=== PATIENT | male | born 1955 | race Caucasian/White ===

== ENCOUNTER → 2021-05-16 14:05 | Outpatient (CLI) | payer OTHER, SELFPAY ==
--- NOTE | ~2021-05-16 | XR_ITS ---
XR knee LT 2V DATE: 05/16/2021 14:20 INDICATION: Left knee pain. Struck knee against doorframe weeks ago. TECHNIQUE: Standing AP and lateral views COMPARISON: None FINDINGS: Mild suprapatellar knee joint effusion. Prominent enthesopathy at the superior pole of the patella. No fracture or dislocation. No periosteal reaction or bone destruction. No radiopaque intra-articular loose body or chondrocalcinosis. Joint spaces are well preserved. Femoral and popliteal artery calcifications. IMPRESSION: Mild knee joint effusion Reviewed, dictated and finalized at location B. IMPRESSION: Mild knee joint effusion
== END ==
PROVIDERS: PCP Emergency Medicine; Visit Provider Emergency Medicine
DX: M25.562 Pain in left knee (principal); M25.462 Effusion, left knee
CPT/HCPCS: 73560

== ENCOUNTER 2021-07-22 12:56 | Outpatient (CLI) | payer OTHER, SELFPAY ==
--- NOTE | ~2021-07-22 | XR_ITS ---
XR wrist LT 2V 07/22/2021 13:36 Indication: Left wrist pain Procedure: 2 views left wrist Comparison: No prior studies for comparison. Findings: There is radiocarpal joint space narrowing. There is scattered lucencies throughout the car pal bones, likely degenerative. No fracture or traumatic malalignment. There is mild ventral soft tis ortega swelling on the lateral view. No foreign bodies. There is anatomic alignment. There are degenerat doe changes at the radiocarpal, triscaphe and first carpometacarpal joints. 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 Reviewed, dictated and finalized at location A. 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
--- NOTE | ~2021-07-22 | MR_ITS ---
EXAMINATION: MR wrist LT wo con DATE: 07/22/2021 14:32 INDICATION: Left wrist pain TECHNIQUE: Magnetic resonance imaging (MRI) of the left wrist was performed without intravenous contr ast. Sequences performed include axial PD-weighted FSE and PD-weighted FS FSE, coronal PD-weighted FS FSE and T1-weighted SE, and sagittal PD-weighted FS FSE and PD-weighted FSE. COMPARISON: None FINDINGS: Intrinsic ligaments: There is partial tear of the dorsal component of the scapholunate ligament. The volar and central mem branous component bones. Remaining intact. The lunotriquetral ligament is normal. Triangular fibrocartilage complex (TFCC): There is a tear at the ulnar styloid attachment of the triangular fibrocartilage complex. The remaind er of the complex including the central fibrocartilaginous disc, the foveal attachment as well as the dorsal and volar radioulnar ligaments are normal. There also appears to be at least partial tear of the lunotriquetral ligament. The extensor carpi ulnaris tendon sheath is normal. Extensor wrist: Extensor tendons of the wrist are normal. No tenosynovitis. Flexor wrist: The flexor tendons of the wrist are normal. No abnormality in the carpal tunnel with normal median n erve. Guyon's canal: Guyon's canal including the ulnar nerve and artery are normal. Bones/other: Bone alignment is normal. Nonspecific marrow edema throughout the proximal carpal row as well as at t he both the radial and ulnar styloid processes. No fracture or osteonecrosis. Osteoarthritis with mil d nonuniform joint space narrowing and/or small marginal osteophytes at the radial carpal, midcarpal, triscaphe and first carpal metacarpal joints. There is suggestion of a possible small erosion at the volar tip of the radial styloid process. There is prominent synovitis and small associated joint eff usion throughout the wrist and midcarpal joints. IMPRESSION: 1. Partial tear of the dorsal component of the scapholunate ligament. 2. Tear at the ulnar styloid attachment of the triangular fibrocartilage complex and likely at least partial tear of the lunotriquetral ligament. 3. Nonspecific mild marrow edema primarily in the proximal carpal row and small regions at the radial ulnar styloid processes. This could be related to mild polyarticular osteoarthritis at the wrist and carpus, superimposed inflammatory arthritis with small effusions and associated synovitis at the wri st and midcarpal joints and suggestion of a possible small erosion at the tip of the radial styloid p rocess or bone contusions if there has been history of recent trauma. Reviewed, dictated and finalized at location A. IMPRESSION: 1. Partial tear of the dorsal component of the scapholunate ligament. 2. Tear at the ulnar styloid attachment of the triangular fibrocartilage comple x and likely at least partial tear of the lunotriquetral ligament. 3. Nonspecific mild marrow edema primarily in the proximal carpal row and small regions at the radial ulnar styloid processes. This could be related to mild p olyarticular osteoarthritis at the wrist and carpus, superimposed inflammatory arthritis with small effusions and associated synovitis at the wrist and midcar pal joints and suggestion of a possible small erosion at the tip of the radial styloid process or bone contusions if there has been history of recent trauma.
== END 2021-07-22 12:57 | disposition home or self-care (01) ==
PROVIDERS: PCP Emergency Medicine; Visit Provider Emergency Medicine
DX: S63.502A Unspecified sprain of left wrist, initial encounter (principal)
CPT/HCPCS: 73100; 73221

== ENCOUNTER 2021-07-26 13:39 | Outpatient (CLI) | payer OTHER, SELFPAY ==
--- NOTE | ~2021-07-26 | US_ITS ---
EXAMINATION:US venous doppler LE LT INDICATION:Left leg edema TECHNIQUE: Multiple grayscale, color flow and Doppler images of the left lower extremity deep venous systems were obtained and reviewed. COMPARISON:No prior studies for comparison. FINDINGS: The common femoral, superficial femoral and popliteal veins demonstrate normal respiratory variation, augmentation and compressibility. Color flow is also seen within the posterior tibial, pe roneal, greater saphenous and profunda veins. IMPRESSION: 1: No lower extremity deep venous thrombosis. Reviewed, dictated and finalized at location A.
== END 2021-07-26 13:40 | disposition home or self-care (01) ==
PROVIDERS: PCP Emergency Medicine; Visit Provider Emergency Medicine
DX: M79.662 Pain in left lower leg (principal); M79.89 Other specified soft tissue disorders
CPT/HCPCS: 93971

== ENCOUNTER 2021-08-02 00:21 | Day surgery (SDC) | payer OTHER, SELFPAY ==
[2021-07-07 14:13] VITALS: BMI 38.0
[2021-08-02 09:22] VITALS: BP 157/92; PULSE 88; RESP 20; TEMP 35.8; O2SAT 100
[2021-08-02] MEDS: LACTATED RINGERS 1,000 ML 150 ML IV CONT (09:36)
--- NOTE | 2021-08-02 09:38 | PM.HPGS ---
History of Present Illness History of Present Illness Consent: Risks, benefits, and alternatives have been discussed and questions answered. Patient agrees to proceed with procedure. Chief complaint: hx of colon polyps Narrative: Himanshu Goodrich is a 66 year old male here for colon cancer screening. He has a history of polyps Review of Systems Review of Systems: All systems reviewed & are unremarkable except as noted in HPI and below PMFSH Family History Family History Sibling Family history of rheumatoid arthritis Family history of cardiovascular disease Family history of diabetes mellitus in first degree relative Family history of malignant neoplasm of breast in first degree relative Father Cerebrovascular accident Mother Family history of pancreatic cancer Social History Social History Smoking packs per day: 1 Smoking cigarettes per day: 20.0 Years smoked: 40 Smoking pack-years: 40.00 Smoking status: Current every day smoker Tobacco type: cigarettes Smoking end date: 11/04/14 Alcohol intake: current Drinks per week: 20 Substance use: never Substance use type: does not use Living arrangements: alone Spiritual care concerns: No Meds Home Medications and Allergies Home Medications Medication Instructions Recorded Confirmed Type amlodipine 10 mg PO DAILY 07/07/21 08/02/21 History metoprolol succinate 50 mg PO DAILY 07/07/21 08/02/21 History rosuvastatin 10 mg PO DAILY 07/07/21 08/02/21 History Allergies Allergy/AdvReac Type Severity Reaction Status Date / Time No Known Allergies Allergy Verified 08/02/21 09:21 Vital Signs Vital Signs - 24 hr 08/02/21 09:22 Temperature 35.8 C L Pulse Rate 88 Respiratory Rate 20 Blood Pressure 157/92 H Pulse Oximetry 100 Exam Resp: Auscultation: clear to auscultation bilaterally Cardio: Rate: regular rate Rhythm: regular rhythm GI: GI Palp: Yes Soft to palpation and No Tenderness to palpation present (GI) Assessment and Plan Assessment and plan (1) Colon cancer screening: Code(s): Z12.11 - Encounter for screening for malignant neoplasm of colon Status: Acute Assessment and Plan: Colonoscopy with possible biopsy or polypectomy or cautery or injection of substances.
--- NOTE | 2021-08-02 10:05 | P.PNAN_ITS ---
Anes - Initial Pre Proc Eval Procedure: Operation Date: 08/02/21 10:00 Proposed Procedures p Screening Colonoscopy - lAexis Gaitan MD Date/Time: 08/02/21 10:05 Surgeon: Alexis Gaitan MD Pre Op Diagnosis: hx of colon polyps Patient Data Age: 66 Gender: M Height: 1.7 m Weight: 102.6 kg Last Vital Signs Temp 96.5 F L 08/02/21 09:22 Pulse 88 08/02/21 09:22 Resp 20 08/02/21 09:22 BP 157/92 H 08/02/21 09:22 Pulse Ox 100 08/02/21 09:22 Allergies Allergy/AdvReac Type Severity Reaction Status Date / Time No Known Allergies Allergy Verified 08/02/21 09:21 Home Medications Medication Instructions Recorded Confirmed Type amlodipine 10 mg PO DAILY 07/07/21 08/02/21 History metoprolol succinate 50 mg PO DAILY 07/07/21 08/02/21 History rosuvastatin 10 mg PO DAILY 07/07/21 08/02/21 History Patient hx anesthesia problems: none Family hx anesthesia problems: none Results Review: All pre-operative results and documents have been reviewed as part of the pre-operative evaluation. [facility] Past Medical History Medical History (Updated 08/02/21 @ 10:04 by Walter Munoz MD) Hyperlipidemia Hypertension SUJEY (obstructive sleep apnea) Family History Family History Sibling Family history of rheumatoid arthritis Family history of cardiovascular disease Family history of diabetes mellitus in first degree relative Family history of malignant neoplasm of breast in first degree relative Father Cerebrovascular accident Mother Family history of pancreatic cancer Social History Social History Smoking packs per day: 1 Smoking cigarettes per day: 20.0 Years smoked: 40 Smoking pack-years: 40.00 Smoking status: Current every day smoker Tobacco type: cigarettes Smoking end date: 11/04/14 Alcohol intake: current Drinks per week: 20 Substance use: never Substance use type: does not use Living arrangements: alone Spiritual care concerns: No Anes - Eval Final PreProcedure Day of Procedure 08/02/21 10:05 Patient weight: obese Heart: regular rate and rhythm Lungs: clear to auscultation Airway: Mallampati scale class II Neurological: alert and oriented Last oral intake: >/= 8 hours Emergent: no Anesthetic plan: proceed Anesthesia type and monitoring: general GIVS and standard monitoring Results Review: All pre-operative results and documents have been reviewed as part of the pre-operative evaluation. Informed Consent: The patient's anesthetic plan and its attendant risks and benefits were discussed with the patient/family/POA. Questions were solicited and answers provided to the satisfaction of the patient/family/POA.
[2021-08-02 10:26] VITALS: BP 134/74; PULSE 79; RESP 28; O2SAT 97
[2021-08-02 10:36] VITALS: BP 133/78; PULSE 79; RESP 21; O2SAT 98
[2021-08-02 10:46] VITALS: BP 137/87; PULSE 81; RESP 29; O2SAT 100
== END 2021-08-02 10:50 | disposition home or self-care (01) ==
PROVIDERS: PCP Emergency Medicine; Visit Provider Internal Medicine Gastroenterology
PROC: 0DJD8ZZ Inspection of Lower Intestinal Tract, Via Natural or Artificial Opening Endoscopic (ICD-10-PCS; CPT 45378; principal; 2021-08-02 10:00)
DX: Z12.11 Encounter for screening for malignant neoplasm of colon (principal); K63.5 Polyp of colon; K64.8 Other hemorrhoids; I10 Essential (primary) hypertension; G47.33 Obstructive sleep apnea (adult) (pediatric); E66.9 Obesity, unspecified; Z68.35 Body mass index [BMI] 35.0-35.9, adult; Z87.891 Personal history of nicotine dependence
CPT/HCPCS: 45385; 45380; 88305; J2704; J7120

== ENCOUNTER → 2022-01-18 09:04 | Outpatient (CLI) | payer MEDICARE, SELFPAY ==
--- NOTE | ~2022-01-18 | CT_ITS ---
EXAMINATION: CT lung screening DATE: 01/18/2022 09:24 INDICATION: Personal history of nicotine dependence TECHNIQUE: Computed tomography (CT) of the chest was performed without intravenous contrast. The dose -length product was 320.69 mGy-cm. Automated exposure control and iterative reconstruction technique were employed. COMPARISON: None FINDINGS: There is atherosclerosis of the aorta and coronary arteries. Heart size is normal. No endob ronchial lesions. No pneumothorax. No focal airspace consolidation. There are a few small 1-2 mm nodu les in both lungs, most likely benign. No endobronchial lesions. No thoracic lymphadenopathy. The upp er abdomen is unremarkable. Mild thoracic spondylosis. IMPRESSION: 1. Lung-RADS category 2: Benign appearance or behavior. Continue annual screening with noncontrast lo w-dose chest CT in 12 months. Reviewed, dictated and finalized at location B. IMPRESSION: 1. Lung-RADS category 2: Benign appearance or behavior. Continue annual screeni ng with noncontrast low-dose chest CT in 12 months.
== END ==
PROVIDERS: PCP Emergency Medicine; Visit Provider Emergency Medicine
DX: Z12.2 Encounter for screening for malignant neoplasm of respiratory organs (principal); Z87.891 Personal history of nicotine dependence
CPT/HCPCS: 71271

== ENCOUNTER → 2023-08-16 10:18 | Outpatient (CLI) | payer MEDICARE, SELFPAY ==
--- NOTE | ~2023-08-16 | CT_ITS ---
CT Scan of the Chest without Contrast: Clinical Indication: Lung cancer screening, smoking history Technique: Contiguous sections were acquired throughout the chest without intravenous contrast. Dose reduction technique was used on this scan by utilizing automated exposure control and iterative recon struction technique. The dose-length product (DLP) was 249.14 mGy-cm. COMPARISON: 01/18/2022 Findings: There is no evidence of any significant mediastinal, hilar or axillary lymphadenopathy. Atherosclerot ic calcifications of the aorta and coronary arteries are present. There is no evidence of pleural or pericardial effusion. There are several peripheral very small subcentimeter nodules in the right upper lobe, most likely be nign. Images through the upper abdomen reveal no abnormalities. There is DISH of the thoracic spine. Impression: Lung RADS 2: Benign appearance. 12 month follow-up screening CT advised. Reviewed, dictated and finalized at [facility]. Impression: Lung RADS 2: Benign appearance. 12 month follow-up screening CT advised.
== END ==
PROVIDERS: PCP Emergency Medicine; Visit Provider Emergency Medicine
DX: Z12.2 Encounter for screening for malignant neoplasm of respiratory organs (principal); Z87.891 Personal history of nicotine dependence
CPT/HCPCS: 71271

== ENCOUNTER 2024-10-09 08:45 | Outpatient (CLI) | payer MEDICARE, SELFPAY ==
--- NOTE | ~2024-10-09 | CT_ITS ---
CT Scan of the Chest without Contrast: Clinical Indication: Lung cancer screening, nicotine dependence Technique: Contiguous sections were acquired throughout the chest without intravenous contrast. Dose reduction technique was used on this scan by utilizing automated exposure control and iterative recon struction technique. The dose-length product (DLP) was 250.73 mGy-cm. COMPARISON: 08/16/2023 Findings: There is no evidence of any significant mediastinal, hilar or axillary lymphadenopathy. Coronary jazmin ry calcifications are present. There is no evidence of pleural or pericardial effusion. Several tiny peripheral right upper lobe pulmonary nodules are unchanged. Images through the upper abdomen reveal no abnormalities. There is DISH of the thoracic spine. Impression: Lung RADS 2: Benign appearance. 12 month follow-up screening CT advised. Reviewed, dictated and finalized at location . RTISING DISPLAY ROTATOR Impression: Lung RADS 2: Benign appearance. 12 month follow-up screening CT advised.
== END 2024-10-09 08:46 | disposition home or self-care (01) ==
LOC: MICIMG 08:46
PROVIDERS: PCP Emergency Medicine; Visit Provider Emergency Medicine
DX: Z12.2 Encounter for screening for malignant neoplasm of respiratory organs (principal); Z87.891 Personal history of nicotine dependence
CPT/HCPCS: 71271

== ENCOUNTER 2025-01-13 06:49 | Inpatient (IN) | payer MEDICARE, SELFPAY ==
[2025-01-13] VITALS (27 sets, daily range): BP systolic 122–185; BP diastolic 54–93; PULSE 10–108; RESP 18–37; TEMP 36.2–36.9; O2SAT 91–100; BMI 38.3
--- NOTE | 2025-01-13 | ECHO_ITS ---
Patient Info Name: Himanshu Goodrich Age: 70 years : 1955 Gender: Male Ht: 67 in Wt: 244 lbs BSA: 2.34 m2 HR: 102 bpm BP: 139 / 54 mmHg Heart Rhythm: Atrial Fibrillation Technical Quality: Fair Exam Date: 01/13/2025 3:32 PM Exam Location: Echo Lab Patient Status: Inpatient Admit Date: 01/13/2025 Staff Ordering Physician: Sai Lee MD Manager Personal: Alla Parham RDCS Attending Provider: Sai Lee MD Exam Type: CA echo dop color flow w con Study Info Indications - Edema - SOB Complete two-dimentional, color flow and Doppler transthoracic echocardiogram is performed with agitated saline and with contrast to opacify the left ventricle and to improve the delineation of the left ventricle endocardial borders. Contrast/Agitated Saline Contrast/Ag. Saline: Definity Amount: 8.00 ml Existing IV Access: Yes IV Access Condition: patent with no signs of infiltration New IV Access: Antecubital Space Summary 1. There is normal biventricular size and systolic function. 2. There is no significant valvular disease. 3. Technically difficult study with limited visualization. Left Ventricle The left ventricle is normal in size with hyperdynamic systolic function. The left ventricular ejection fraction is greater than 70%. Right Ventricle The right ventricle is normal in size and systolic function. Left Atria The left atrium is normal size. Right Atria The right atrium is normal size. Atrial Septum The atrial septum is not well visualized. Aortic Valve The aortic valve is not well visualized however the Doppler gradients across the valve suggests normal function valve. Pulmonic Valve The pulmonic valve is not visualized. Mitral Valve The mitral valve is normal. There is no significant mitral regurgitation. Tricuspid Valve The tricuspid valve is not well visualized. Pericardium/Pleural Prominent epicardial fat pad. Inferior Vena Cava Inferior vena cava is not well visualized. Aorta The aortic root is not well visualized. Left Ventricular Outflow Tract Name Value Normal LVOT 2D LVOT Diameter 2.03 cm LVOT Doppler LVOT Peak Gradient 9 mmHg LVOT Mean Gradient 4 mmHg LVOT VTI 27.74 cm LVOT VTI/AV VTI Ratio 0.77 LVOT Stroke Volume 89.33 ml LVOT CO 9.03 l/min LVOT CI 3.86 L/min/m2 Pulmonic Valve Name Value Normal RVOT Doppler RVOT Peak Gradient 2 mmHg PV Doppler PV Peak Gradient 5 mmHg Mitral Valve Name Value Normal MV Doppler MV Decel [place] 1,149.01 cm/s2 MV PHT 0 s MV Area (PHT) 5.51 cm2 4.00-5.00 MV Diastolic Function MV E Peak Velocity 158.19 cm/s MV A Peak Velocity 5.14 cm/s MV E/A 30.80 MV Decel Time 0 s MV Annular TDI MV E/e' (Septal) 9.99 <=8.00 MV E/e' (Lateral) 21.61 <=8.00 MV E/e' (Average) 15.80 Aortic Valve Name Value Normal AV Doppler AV Peak Velocity 182.65 cm/s AV Peak Gradient 13 mmHg AV Mean Gradient 7 mmHg AV VTI 36.20 cm AV Area (Cont Eq VTI) 2.47 cm2 >=3.00 AV Area (Cont Eq Francis) 2.63 cm2 AV Regurgitation 2D LVOT Area 3.22 cm2 Ventricles Name Value Normal LV Dimensions 2D/MM IVS Diastolic Thickness (2D) 1.16 cm 0.60-1.00 LVID Diastole (2D) 5.38 cm 4.20-5.80 LVIW Diastolic Thickness (2D) 1.06 cm 0.60-1.00 LVID Systole (2D) 3.55 cm 2.50-4.00 LVOT Diameter 2.03 cm LV Mass (2D Cubed) 236.20 g 88.00-224.00 LV Mass Index (2D Cubed) 0.01 g/cm2 0.00-0.01 Relative Wall Thickness (2D) 0.39 LV Fractional Shortening/Ejection Fraction 2D/MM LV Fractional Shortening (2D) 34 % 25-43 LV EF (2D Teicholz) 62 % 52-72 LV Diastolic Volume (4C MOD) 146.01 ml LV EF (4C MOD) 67 % LV Diastolic Volume (2C MOD) 102.66 ml LV EF (2C MOD) 69 % LV Diastolic Volume (BP MOD) 117.42 ml 62.00-150.00 LV Diastolic Volume Index (BP MOD) 0.05 l/m2 0.03-0.07 LV Systolic Volume (BP MOD) 39.80 ml 21.00-61.00 LV Systolic Volume Index (BP MOD) 0.02 l/m2 0.01-0.03 LV EF (BP MOD) 66 % 52-72 LV Diastolic Length (4C) 8.03 cm LV Systolic Length (4C) 7.28 cm LV Stroke Volume (4C MOD) 98.00 ml Atria Name Value Normal LA Dimensions LA Volume (4C A-L) 70.97 ml LA Volume (BP A-L) 56.01 ml RA Dimensions RA Area (4C) 23.20 cm2 <=18.00 Report Signatures
--- NOTE | ~2025-01-13 | US_ITS ---
EXAMINATION: US venous doppler [facility] DATE: 01/13/2025 08:31 INDICATION: Lower limb swelling and edema. TECHNIQUE: Grayscale ultrasound images without and with compression and Doppler ultrasound images of the bilateral lower extremity veins were obtained. COMPARISON: Ultrasound 07/26/2021 FINDINGS: The visualized portions of right common femoral vein, profunda (deep) femoral vein, femoral vein, pop liteal vein, peroneal veins, posterior tibial veins, and greater saphenous vein outflow are patent. The visualized portions of left common femoral vein, profunda femoral vein, femoral vein, popliteal v ein, peroneal veins, posterior tibial veins, and greater saphenous vein outflow are patent. IMPRESSION: 1. No deep venous thrombosis. Reviewed, dictated and finalized at location B.
--- NOTE | ~2025-01-13 | CT_ITS ---
CLINICAL INDICATION: Hypoxia COMPARISON: 10/09/2024 and dating back to 01/18/2022. TECHNIQUE: Multiple contiguous axial images of the chest was performed without the administration of intravenous contrast. This CT examination was performed utilizing dose reduction techniques. DLP: 251 mGy-cm FINDINGS/OBSERVATIONS: LUNG: Cylindrical peribronchial thickening is redemonstrated. 4 mm nodule within the left upper lobe periphery, unchanged dating back to 2021. The remainder of the lungs are otherwise clear HEART: The heart is of normal size, without pericardial effusion. MEDIASTINUM: No pathologically enlarged or morphologically suspicious lymph nodes are identified within the medias tinum, bilateral axilla, within the soft tissues of the anterior chest wall. SOFT TISSUES OF THE CHEST: Unremarkable. BONES OF THE CHEST: No acute fracture. There are bridging endplate osteophytes at multiple levels in the spine, consistent with diffuse idio pathic skeletal hyperostosis (DISH). No lytic or blastic lesions are identified. UPPER ABDOMEN: Fatty infiltration of the liver. IMPRESSION: Cylindrical bronchiectasis. No focal infiltrate. Reviewed, dictated and finalized at location A.
--- NOTE | ~2025-01-13 | XR_ITS ---
EXAMINATION: XR chest 1V portable DATE: 01/13/2025 08:34 INDICATION: Shortness of breath. TECHNIQUE: A single frontal view of the chest was obtained. COMPARISON: Chest CT 10/09/2024 FINDINGS: There is no pneumonia, pleural effusion, or pneumothorax. The heart size is normal. IMPRESSION: 1. No acute cardiopulmonary disease. Reviewed, dictated and finalized at location B.
--- NOTE | 2025-01-13 06:59 | ECG_ITS ---
Test Date: 2025-01-13 06:54:41 Measurements Intervals [place] Rate: 98 P: 61 NE: 200 QRS: 43 QRSD: 106 T: 60 QT: 327 QTc: 418 Interpretive Statements SINUS RHYTHM POSSIBLE LEFT ATRIAL ENLARGEMENT [-0.1mV P WAVE IN V1/V2] No previous ECG available for comparison Electronically Signed On 01-13-2025 13:40:33 CDT by Levi Reed M.D.
[2025-01-13 07:09] LABS: Basophils Absolute Auto 0.1 K/mm3 (0.0-0.1); Basophils Percent Auto 0.7 % (0.2-1.2); Eosinophils Percent Auto 7.3 % (0-4.4); Hematocrit 39.1 % (42.0-52.0); Immature Granulocyte Absolute 0.05 K/mm3 (0.00-0.031); Immature Granulocyte Percent A 0.4 % (0-0.5); Lymphocytes Absolute Auto 1.99 K/mm3 (0.9-3.2); Lymphocytes Percent Auto 14.1 % (18.3-44.2); Mean Corpuscular HGB Conc 33.2 g/dl (32-36); Mean Corpuscular Hemoglobin 32.3 pg (26-34); Mean Platelet Volume 8.5 fl (7.4-10.4); Monocytes Absolute Auto 1.4 K/mm3 (0.1-0.6); Monocytes Percent Auto 9.8 % (2.6-8.5); Neutrophils Absolute Auto 9.6 K/mm3 (1.3-6.7); Neutrophils Percent Auto 67.7 % (45.5-73.1); Platelet Count Result 250 k/mm3 (150-375); Red Blood Count 4.03 M/mm3 (4.6-6.20); Red Cell Distribution Width 13.5 % (11.5-14.5); White Blood Count 14.1 K/mm3 (4.5-10.0)
[2025-01-13 07:27] LABS: Alanine Aminotransferase 45 U/L (6-50); Albumin Level 4.3 g/dL (3.5-5.1); Alkaline Phosphatase 112 U/L (38-126); Anion Gap 11 mmol/L (4-12); Aspartate Amino Transferase 39 U/L (17-59); Bilirubin,Total 0.6 mg/dL (0.2-1.3); Blood Urea Nitrogen 12 mg/dL (9-20); Calcium 8.9 mg/dL (8.4-10.2); Carbon Dioxide 22 mmol/L (22-30); Chloride 102 mmol/L (98-107); Estimated CRCL calculation 81 ml/min; Estimated Glomerular Filt Rate > 60; Glucose 121 mg/dL (65-110); Potassium 3.9 mmol/L (3.4-5.0); Sodium 135 mmol/L (137-145)
[2025-01-13 07:43] LABS: Influenza A QL RT-PCR Negative (Negative); Influenza B QL RT-PCR Negative (Negative); RSV RNA, RT-PCR Negative (Negative); SARS-CoV-2 RNA PCR Negative (Negative)
--- OUTSIDE RECORDS SUMMARY | 2025-01-13 07:48 | XMS_ITS | Referral Summary ---
Author Organization [facility] HealthCare Care Team Providers Care Putty Glazer Name Role Phone Vern Yusuf MD Primary Care Provider Allergies No known active allergies Medications metoprolol XL (Toprol XL) 50 mg extended release tablet Take 1 tablet by mouth daily 05/15/2021 Active amLODIPine (Norvasc) 10 mg tablet Take 1 tablet by mouth daily 05/15/2021 Active rosuvastatin (Crestor) 10 mg tablet Take 1 tablet by mouth daily 10/12/2020 Active cholecalciferol (VITAMIN D-3) 2000 unit capsule Take 1 capsule (2,000 Units total) by mouth daily 30 capsule 09/11/2021 Active metoprolol XL (TOPROL-XL) 100 mg 24 hr tablet 09/14/2021 Act doe Active Problems Problem Noted Date Diagnosed Date Carpal tunnel syndrome of left wrist 08/18/2021 Elevated ferritin 03/15/2017 Chronic liver disease 11/18/2013 Hyperlipidemia 11/18/2013 Leukocytosis 11/18/2013 Abdominal hernia 10/20/2013 Essential hypertension 10/20/2013 Social History Tobacco Use Types Packs/Day Years Used Date Smoking Tobacco: Every Day Cigarettes 1 50 Smokeless Tobacco: Never AUDIT-C Answer Date Recorded Q1: How often do you have a drink containing alcohol? 4 or more times a week 09/11/2021 Q2: How many drinks containi ng alcohol do you have on a typical day when you are drinking? 1 or 2 Frequency of Binge Drinking Not on file 06/2021 Sex and Gender Information Value Date Recorded Sex Assigned at Not on file Legal Sex Male 6:25 AM CDT Gender Identity Not on file Sexual Orientation Not on file Last Filed Vital Signs Vital Sign Reading Time Taken Comments Blood Pressure 171/78 09/26/2021 11:56 AM SALES TEAM [employer]BER Pulse 64 09/26/2021 11:56 AM SALES TEAM MEMBER Temperature 36.8 C (98.2 F) 09/11/2021 1:07 PM SALES TEAM MEMBER Respiratory Rate 18 09/11/2021 1:07 PM SALES TEAM [employer]BER Oxygen Saturation 98% 09/11/2021 1:07 PM SALES TEAM MEMBER Inhaled Oxygen Concentration - - Weight 111.1 kg (245 lb) 09/26/2021 11:56 AM SALES TEAM MEMBER Height 170.2 cm (5' 7 ) 09/26/2021 11:56 AM SALES TEAM MEMBER Body Mass Index 38.37 09/26/2021 11:56 AM SALES TEAM MEMBER Plan of Treatment Not on file Insurance [employer]ARE [employer] Care Teams Putty Glazer Relationship Specialty Start Date End Date Vern Yusuf MD [facility] [place] [address] PCP - General Family Medicine 05/24/21
--- OUTSIDE RECORDS SUMMARY | 2025-01-13 07:48 | XMS_ITS | Clinical Summary ---
Author Organization [facility] Address [address] [facility] [address] [place] [address] Phone Care Team Providers Care Collar Turner Operator Name Role Phone Vern Yusuf Primary Care Provider [phone] Allergies No known active allergies Medications fenofibrate 160 MG Tablet daily. 0 12/24/2016 Active valsartan-hydroCH LOROthiazide (DIOVAN-HCT) 320-25 MG Tablet daily. 10/16/2017 Ac tive Active Problems Problem Noted Date Diagnosed Date Elevated ferritin 03/15/2017 Family History Medical History Relation Name Comments Diabetes Brother Other-comment Father connie giopothy-brain bleed Stroke Father Cancer Mother pancreatic Cancer Sister breast Hypertension Sister Relation Name Status Comments Brother Father Mother Sister Social History Tobacco Use Types Packs/Day Years Used Date Smoking Tobacco: Former Cigarettes 2 40 0 03/15/1975 - 03/15/2015 Smokeless Tobacco: Never Alcohol Use Standard Drinks/Week Comments Yes 0 (1 standard drink = 0.6 oz pur e alcohol) wine with dinner Sex and Gender Information Value Date Recorded Sex Assigned at Not on file Legal Sex Male 8:40 PM CDT Gender Identity Not on file Sexual Orientation Not on file Last Filed Vital Signs Vital Sign Reading Time Taken Comments Blood Pressure 118/70 06/06/2018 9:42 AM CDT Pulse 86 06/06/2018 9:42 AM CDT Temperature 36.4 C (97.5 F) 06/06/2018 9:42 AM CDT Respiratory Rate 18 06/06/2018 9:42 AM CDT Oxygen Saturation 98% 06/06/2018 9:42 AM CDT Inhaled Oxygen Concentration - - Weight 90.7 kg (200 lb) 06/06/2018 9:42 AM CDT Height 172.7 cm (5' 8 ) 06/06/2018 9:42 AM CDT Body Mass Index 30.41 06/06/2018 9:42 AM CDT Plan of Treatment Health Maintenance Due Date Last Done Comments Hepatitis C Virus (HCV) Screening 1955 TdaP Immunization 1955 Colonoscopy 01/10/2000 Colorectal Cancer Screening 01/10/2000 Cologuard 2005 Immunochemical Fecal Occult Blood 2005 Pneumococcal Immunization (5 0+ years) (1 of 1 - PCV) 2005 Zoster Immunization (1 of 2) 2005 Influenza Immunization (#1) 07/05/202412/2017, 11/22/2016 SARS-COV-2 Immunization ( - season) 2024 01/23/2021, 12/21/2020 Respiratory Syncytial Virus (RSV) Immunization (Adult) (1 - 1-dose 75+ series) 2030 PSA Discussion Completed 09/28/2017 Hepatitis B Immunization Aged Out No longer eligible based on patient's age to complete this topic Meningococcal Immunization (ACWY) Aged Out No longer eligible b ased on patient's age to complete this topic Rotavirus Immunization Aged Out No lo nger eligible based on patient's age to complete this topic Procedures Procedure Name Priority Date/Time Associated Diagnosis Comments PSA FREE & TOTAL Routine 09/28/2017 from Last 3 Months or Most Recently Relevant to Health Maintenance Results * PSA FREE & TOTAL (09/28/2017) Blood specimen (specimen) us Historical Provider CHEMISTRY ORDERABLES Carol Ann l Result from Last 3 Months or Most Recently Relevant to Health Maintenance Insurance [id number] Care Teams Collar Turner Operator Relationship Specialty Start Date End Date Vern Yusuf [address] [place] [address] PCP - General Family Medicine 03/04/17
--- OUTSIDE RECORDS SUMMARY | 2025-01-13 07:48 | XMS_ITS | Clinical Summary ---
Author Organization [facility] HealthCare Care Team Providers Care Religious Healer Name Role Phone Vern Yusuf MD Primary [...] 11/18/2013 Abdominal hernia 10/20/2013 Essential hypertension 10/20/2013 Medical History Medical History Date Comments Hypertension Hypercholesteremia Social History Tobacco Use Types Packs/Day Years [...] on file Sexual Orientation Not on file Obstetrics History Last Filed Vital Signs Vital Sign Reading Time Taken Comments Blood Pressure 171/78 09/26/2021 11:56 AM [employer] Pulse 64 09/26/2021 11:56 AM [employer] Temperature 36.8 C (98.2 F) 09/11/2021 1:07 PM [employer] Respiratory Rate 18 09/11/2021 1:07 PM [employer] Oxygen Saturation 98% 09/11/2021 1:07 PM [employer] Inhaled Oxygen Concentration - - Weight 111.1 kg (245 lb) 09/26/2021 11:56 AM [employer] Height 170.2 cm (5' 7 ) 09/26/2021 11:56 AM [employer] Body Mass Index 38.37 09/26/2021 11:56 AM [employer] Plan of Treatment Not on file Insurance [facility]ICARE [facility] Address: [facility] [address] [address] [place] [address] [employer] Care Teams Religious Healer Relationship Specialty Start Date End Date Vern Yusuf MD [address] [place] [address] PCP - General Family Medicine 05/24/21
--- NOTE | 2025-01-13 07:49 | ED_ITS ---
HPI - General Adult General Chief complaint: Shortness of Breath/Dyspnea Stated complaint: Resp Distress Time Seen by Provider: 01/13/25 07:01 History of Present Illness HPI narrative: This 70-year-old male history of hypertension obstructive sleep apnea presenting with difficulty breathing. Patient states for last 3 days he has developed a productive cough and shortness of breath. He has orthopnea. He has had intermittent swelling of his lower extremities over last year except who has become constant over the last several days. He denies fevers chills chest pain abdominal pain or urinary symptoms. Patient called EMS was found to be hypoxic and was placed CPAP. 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 Related Data Home Medications ?Medication ?Instructions ?Recorded ?Confirmed ?Last Taken ?Type amlodipine 10 mg tablet 10 mg PO DAILY 07/07/21 08/02/21 08/01/21 21:30 History metoprolol succinate 50 mg 50 mg PO DAILY 07/07/21 08/02/21 08/01/21 21:30 History tablet,extended release 24 hr rosuvastatin 10 mg tablet 10 mg PO DAILY 07/07/21 08/02/21 08/01/21 21:30 History Allergies Allergy/AdvReac Type Severity Reaction Status Date / Time No Known Allergies Allergy Verified 08/02/21 09:21 [facility] Past Medical History Medical History SUJEY (obstructive sleep apnea) Hypertension Hyperlipidemia Family History Family History Sibling Family history of rheumatoid arthritis Family history of cardiovascular disease Family history of diabetes mellitus in first degree relative Family history of malignant neoplasm of breast in first degree relative Father Cerebrovascular accident Mother Family history of pancreatic cancer Social History Social History Smoking packs per day: 1 Smoking cigarettes per day: 20.0 Years smoked: 40 Smoking pack-years: 40.00 Smoking status: Current every day smoker Tobacco type: cigarettes Smoking end date: 11/04/14 Alcohol intake: current Drinks per week: 20 Substance use: never Substance use type: does not use Living arrangements: alone Spiritual care concerns: No Exam 2 Narrative: APPEARANCE: Respiratory distress Head: atraumatic. EYES: EOMI, NOSE: Atraumatic NECK: Trachea midline RESPIRATORY: Tachypneic, hypoxic on room air, scattered wheezing and rhonchi CARDIOVASCULAR: Tachycardic, edema lower extremities ABDOMINAL: Non-distended, soft nontender MUSCULOSKELETAl: No obvious deformities NEURO: Alert. Moving 4/4 extremities SKIN:: Warm, dry. Normal color PSYCHIATRIC: Normal affect Course Vital Signs Vital signs: Vital Signs Temperature 97.9 F 01/13/25 06:48 Pulse Rate 103 H 01/13/25 06:48 Respiratory Rate 37 H 01/13/25 06:48 Blood Pressure 185/93 H 01/13/25 06:48 Pulse Oximetry 100 01/13/25 06:48 Oxygen Delivery CPAP 01/13/25 06:48 Temperature 97.9 F 01/13/25 06:48 Pulse Rate 101 H 01/13/25 11:20 Respiratory Rate 23 H 01/13/25 11:20 Blood Pressure 156/77 H 01/13/25 11:20 Pulse Oximetry 97 01/13/25 11:20 Oxygen Delivery Nasal Cannula 01/13/25 10:50 Oxygen Flow Rate 4 01/13/25 10:50 Medical Decision Making [facility] Narrative Medical decision making narrative: -Course: 70-year-old male presenting 3 days worsening shortness of breath that got acutely worse. Review of the EMS paperwork shows that he was in severe respiratory distress with severely elevated blood pressures that improved w/ bipap. By time I evaluated in the ED his condition had improved immensely. Physical exam showed significant edema lower extremities. Patient given 40 mg of Lasix. His workup including laboratory studies, viral swabs, troponin, D- dimer and BMP were unremarkable. Venous duplex of the lower extremities negative. CT without contrast not show any infiltrates.. Given the acuity of his symptoms I feel this is most likely flash pulmonary edema. We were able to wean him off of the BiPAP in the emergency department and is down to 1 L nasal cannula. He will be admitted the hospital further management. -DDX includes but is not limited to: Flash pulmonary edema, pulmonary embolism, ACS, pneumonia, viral syndrome -Co-morbidities complicating care: Hypertension, obstructive sleep apnea Independent EKG interpretation: Rhythm [sinus], Rate [98], [place] -[normal], MD -[normal], QRS [narrow], QTC [normal], T waves -[negative for concerning inversions], ST Segments - [Negative for concerning elevations] Final interpretations: [Normal Sinus Rhythm] Vital Signs Vital Signs: Vital Signs Temperature 97.9 F 01/13/25 06:48 Pulse Rate 103 H 01/13/25 06:48 Respiratory Rate 37 H 01/13/25 06:48 Blood Pressure 185/93 H 01/13/25 06:48 Pulse Oximetry 100 01/13/25 06:48 Oxygen Delivery CPAP 01/13/25 06:48 Temperature 97.9 F 01/13/25 06:48 Pulse Rate 101 H 01/13/25 11:20 Respiratory Rate 23 H 01/13/25 11:20 Blood Pressure 156/77 H 01/13/25 11:20 Pulse Oximetry 97 01/13/25 11:20 Oxygen Delivery Nasal Cannula 01/13/25 10:50 Oxygen Flow Rate 4 01/13/25 10:50 Lab Data 01/13/25 07:02 01/13/25 07:01 Labs: Lab Results 01/13/25 01/13/25 01/13/25 Range/Units 07:01 07:02 07:55 WBC 14.1 H (4.5-10.0) K/mm3 RBC 4.03 L (4.6-6.20) M/mm3 Hgb 13.0 L (14.0-18.0) g/dL Hct 39.1 L (42.0-52.0) % MCV 97.0 (80-100) fl MCH 32.3 (26-34) pg MCHC 33.2 (32-36) g/dl RDW 13.5 (11.5-14.5) % Plt Count 250 (150-375) k/mm3 MPV 8.5 (7.4-10.4) fl Immature Gran % (Auto) 0.4 (0-0.5) % Neut % (Auto) 67.7 (45.5-73.1) % Lymph % (Auto) 14.1 L (18.3-44.2) % [place] % (Auto) 9.8 H (2.6-8.5) % Eos % (Auto) 7.3 H (0-4.4) % Baso % (Auto) 0.7 (0.2-1.2) % Lymph # (Auto) 1.99 (0.9-3.2) K/mm3 [place] # (Auto) 1.4 H (0.1-0.6) K/mm3 Eos # (Auto) 1.0 H (0-0.3) K/mm3 Baso # (Auto) 0.1 (0.0-0.1) K/mm3 Abs Immat Gran (auto) 0.05 H (0.00-0.031) K/mm3 Absolute Neuts (auto) 9.6 H (1.3-6.7) K/mm3 Absolute Nucleated RBC 0.000 (0.0-0.012) K/mm3 Nucleated RBC % 0.0 (0.0-0.2) % D-Dimer 0.41 (<0.48) ug/mL Expiratory Pressure 8 CMH2O Inspiratory Pressure 18 CMH2O Sodium 135 L (137-145) mmol/L Potassium 3.9 (3.4-5.0) mmol/L Chloride 102 (98-107) mmol/L Carbon Dioxide 22 (22-30) mmol/L Anion Gap 11 (4-12) mmol/L BUN 12 (9-20) mg/dL Creatinine 0.89 (0.7-1.3) mg/dL Estim Creat Clear Calc 81 ml/min Estimated GFR > 60 (59 - ) Glucose 121 H (65-110) mg/dL Calcium 8.9 (8.4-10.2) mg/dL Total Bilirubin 0.6 (0.2-1.3) mg/dL AST 39 (17-59) U/L ALT 45 (6-50) U/L Alkaline Phosphatase 112 (38-126) U/L Troponin I < 0.012 (0.000-0.034) ng/mL NT-Pro-B Natriuret Pep 99 (19.9-100) pg/mL Total Protein 8.0 (6.3-8.2) g/dL Albumin 4.3 (3.5-5.1) g/dL Influenza A (RT-PCR) Negative (Negative) Influenza B (RT-PCR) Negative (Negative) RSV (RT-PCR) Negative (Negative) SARS-CoV-2 RNA (RT-PCR) Negative (Negative) 01/13/25 01/13/25 Range/Units 07:55 11:12 WBC (4.5-10.0) K/mm3 RBC (4.6-6.20) M/mm3 Hgb (14.0-18.0) g/dL Hct (42.0-52.0) % MCV (80-100) fl MCH (26-34) pg MCHC (32-36) g/dl RDW (11.5-14.5) % Plt Count (150-375) k/mm3 MPV (7.4-10.4) fl Immature Gran % (Auto) (0-0.5) % Neut % (Auto) (45.5-73.1) % Lymph % (Auto) (18.3-44.2) % [place] % (Auto) (2.6-8.5) % Eos % (Auto) (0-4.4) % Baso % (Auto) (0.2-1.2) % Lymph # (Auto) (0.9-3.2) K/mm3 [place] # (Auto) (0.1-0.6) K/mm3 Eos # (Auto) (0-0.3) K/mm3 Baso # (Auto) (0.0-0.1) K/mm3 Abs Immat Gran (auto) (0.00-0.031) K/mm3 Absolute Neuts (auto) (1.3-6.7) K/mm3 Absolute Nucleated RBC (0.0-0.012) K/mm3 Nucleated RBC % (0.0-0.2) % D-Dimer (<0.48) ug/mL Expiratory Pressure CMH2O Inspiratory Pressure CMH2O Sodium (137-145) mmol/L Potassium (3.4-5.0) mmol/L Chloride (98-107) mmol/L Carbon Dioxide (22-30) mmol/L Anion Gap (4-12) mmol/L BUN (9-20) mg/dL Creatinine (0.7-1.3) mg/dL Estim Creat Clear Calc ml/min Estimated GFR (59 - ) Glucose (65-110) mg/dL Calcium (8.4-10.2) mg/dL Total Bilirubin (0.2-1.3) mg/dL AST (17-59) U/L ALT (6-50) U/L Alkaline Phosphatase (38-126) U/L Troponin I Pending (0.000-0.034) ng/mL NT-Pro-B Natriuret Pep Cancelled (19.9-100) pg/mL Total Protein (6.3-8.2) g/dL Albumin (3.5-5.1) g/dL Influenza A (RT-PCR) (Negative) Influenza B (RT-PCR) (Negative) RSV (RT-PCR) (Negative) SARS-CoV-2 RNA (RT-PCR) (Negative) ABG Data ABG results: 01/13/25 07:55 VBG pH 7.354 VBG pCO2 42.0 VBG pO2 113.3 H VBG HCO3 22.9 L O2 Delivery Device Non-invasive vent O2 Liters/Min Not Reportable Vent Rate 16 FiO2 75 Critical Care Time Critical Care Time Critical Care Time: Yes Total Critical Care Time: 35 Discharge Plan Discharge Clinical Impression: Hypoxic respiratory failure, Flash pulmonary edema, Edema of both lower legs Patient Disposition: Still a Patient Condition: Stable Instructions: Antibiotic Form Patient Language: Lao Prescriptions: No Action metoprolol succinate 50 mg tablet extended release 24 hr 50 mg PO DAILY amlodipine 10 mg tablet 10 mg PO DAILY rosuvastatin 10 mg tablet 10 mg PO DAILY Follow-up/Referrals: Vern Yusuf MD [Primary Care Provider] -
[2025-01-13 08:00] LABS: Fractional Inspired Oxygen 75 %; HCO3 VBG 22.9 mEq/l (24.0-30.0); PO2 VBG 113.3 mmHg (35.0-45.0); pH VBG 7.354 (7.300-7.400)
[2025-01-13 08:01] LABS: Device NON-INVASIVE VENT
[2025-01-13 08:02] LABS: Non-Invasive Expiratory Pressure 8 CMH2O; Non-Invasive Inspiratory Pressure 18 CMH2O; Non-Invasive Vent Rate 16 /MIN
--- NOTE | 2025-01-13 08:26 | PC.NURSE ---
Resting comfortably on cart. In no resp distress.
[2025-01-13 08:32] LABS: NT Pro B Type Natriuretic Pept 99 pg/mL (19.9-100); Troponin I < 0.012 ng/mL (0.000-0.034)
[2025-01-13 09:33] LABS: D Dimer 0.41 ug/mL (<0.48)
--- NOTE | 2025-01-13 11:11 | ECG_ITS ---
Test Date: 2025-01-13 11:16:03 Measurements Intervals [place] Rate: 94 P: 55 ND: 201 QRS: 35 QRSD: 102 T: 49 QT: 342 QTc: 430 Interpretive Statements SINUS RHYTHM Compared to ECG 01/13/2025 06:54:41 No significant changes Electronically Signed On 01-13-2025 13:52:45 CDT by Levi Reed M.D.
[2025-01-13] MEDS: FUROSEMIDE INJ 40 MG/4 ML VIAL IV PUSH ×2 (11:31→17:00)
[2025-01-13 11:41] LABS: Troponin I < 0.012 ng/mL (0.000-0.034)
--- NOTE | 2025-01-13 12:57 | ADMGEN ---
This patient, Himanshu Goodrich II, was admitted to [facility] Surg Room 314-01. Patient/family oriented to hospital policies and general routines including ID bracelet, bed and alarms, visiting hours, pain management, procedures, bathroom and other care routines, personal items, smoking policy, room service/diet, and visiting hours. Information on how to activate the Rapid Response Team has been discussed. Patient/Family are encouraged to report perceived risks to care and to ask questions if they do not understand what they are told or what they should do.
[2025-01-13] MEDS: PERFLUTREN LIPID MICROSPHERES 1.5 ML VIAL DILUTED TO 10 ML TOTAL VOLUME IV PUSH (16:00)
[2025-01-13] MEDS: guaiFENesin/DEXTROMETHORPHAN 10 ML UDC 5 ML PO (17:00)
--- NOTE | 2025-01-13 17:06 | P.HP_ITS ---
H&P: HPI History of Present Illness Date/Time: 01/13/25 17:06 Chief Complaint: Cough and shortness of breath Narrative: ER-HPI narrative: This 70-year-old male history of hypertension obstructive sleep apnea presenting with difficulty breathing. Patient states for last 3 days he has developed a productive cough and shortness of breath. He has orthopnea. He has had intermittent swelling of his lower extremities over last year except who has become constant over the last several days. He denies fevers chills chest pain abdominal pain or urinary symptoms. patient stats he has been working at a [employer] down [employer] years old building and has been breathing some nasty stuff, several of coworker also sick with cough and short breath, CT scan of chest showed Cylindrical bronchiectasis, will start patine augustus Zuluaga and amadou peace, will consult retail marketing coordinator for further recommendations, patient has lower extremities swelling c/o nocturnal orthopnea and dyspnea suspect patient may have pulmonary edema, patient is treated with Lasix, will do cardiac echo and further recommendation to follow. Review of Systems Review of Systems: All systems reviewed & are unremarkable except as noted in HPI and below PMFSH Past Medical History Medical History SUJEY (obstructive sleep apnea) Hypertension Hyperlipidemia Family History Family History Sibling Family history of rheumatoid arthritis Family history of cardiovascular disease Family history of diabetes mellitus in first degree relative Family history of malignant neoplasm of breast in first degree relative Father Cerebrovascular accident Mother Family history of pancreatic cancer Social History Social History Smoking packs per day: 1 Smoking cigarettes per day: 20.0 Years smoked: 40 Smoking pack-years: 40.00 Smoking status: Current every day smoker Alcohol intake: current Drinks per week: 10 Substance use: never Substance use type: does not use Do You Feel Safe in your Home?: Yes Lack of Transportation: No Lack of Food: Never True Current Housing: I Have Housing Concerned About Future Housing: No Difficulty Paying Gas/Electric Bills: No Difficulty Paying for Meds: No Currently Unemployed: No Education: Decline to Answer Difficulty w/ Childcare or Family Care: No Living arrangements: alone Spiritual care concerns: No Meds Home Medications and Allergies Home Medications ?Medication ?Instructions ?Recorded ?Confirmed ?Type amlodipine 10 mg tablet 10 mg PO DAILY 07/07/21 01/13/25 History rosuvastatin 10 mg tablet 10 mg PO DAILY 07/07/21 01/13/25 History irbesartan 150 mg tablet 150 mg PO DAILY 01/13/25 01/13/25 History metoprolol succinate 100 mg 100 mg PO DAILY 01/13/25 01/13/25 History tablet,extended release 24 hr Allergies Allergy/AdvReac Type Severity Reaction Status Date / Time No Known Allergies Allergy Verified 01/13/25 13:06 Vital Signs Vital Signs - 24 hr 01/13/25 06:48 01/13/25 06:53 01/13/25 06:57 Temperature 36.6 C Pulse Rate 103 H 99 100 Respiratory Rate 37 H 32 H Blood Pressure 185/93 H Pulse Oximetry 100 100 Oxygen Delivery CPAP BiPAP Oxygen Flow Rate 01/13/25 06:58 01/13/25 06:58 01/13/25 07:00 Temperature Pulse Rate 95 96 Respiratory Rate 26 H 25 H Blood Pressure Pulse Oximetry 100 100 95 Oxygen Delivery CPAP Oxygen Flow Rate 01/13/25 07:01 01/13/25 07:08 01/13/25 07:15 Temperature Pulse Rate 95 100 Respiratory Rate 24 H 18 Blood Pressure 174/84 H Pulse Oximetry 100 99 Oxygen Delivery BiPAP Oxygen Flow Rate 01/13/25 07:16 01/13/25 07:30 01/13/25 07:31 Temperature Pulse Rate 94 Respiratory Rate 20 Blood Pressure 163/75 H Pulse Oximetry 100 91 100 Oxygen Delivery Oxygen Flow Rate 01/13/25 07:45 01/13/25 07:46 01/13/25 07:55 Temperature Pulse Rate 76 Respiratory Rate 24 H Blood Pressure Pulse Oximetry 97 100 98 Oxygen Delivery BiPAP Oxygen Flow Rate 01/13/25 08:00 01/13/25 08:01 01/13/25 10:15 Temperature Pulse Rate 94 94 87 Respiratory Rate 21 H 23 H 22 H Blood Pressure 175/77 H Pulse Oximetry 92 100 100 Oxygen Delivery BiPAP Oxygen Flow Rate 01/13/25 10:50 01/13/25 11:20 01/13/25 11:30 Temperature Pulse Rate 101 H 103 H Respiratory Rate 23 H 20 Blood Pressure 156/77 H 152/77 H Pulse Oximetry 98 97 95 Oxygen Delivery Nasal Cannula Oxygen Flow Rate 4 01/13/25 11:30 01/13/25 13:37 01/13/25 14:22 Temperature 36.3 C L Pulse Rate 102 H Respiratory Rate 18 Blood Pressure 139/54 L Pulse Oximetry 95 95 98 Oxygen Delivery Nasal Cannula Nasal Cannula Oxygen Flow Rate 4 4 01/13/25 15:38 Temperature 36.2 C L Pulse Rate 103 H Respiratory Rate 22 H Blood Pressure 140/70 Pulse Oximetry 97 Oxygen Delivery Oxygen Flow Rate Exam Narrative: Morbidly obese Patient is comfortable, NAD HEENT: eyes are clear and none icteric LUNGS: Bilateral fair entry with rales and rhonchi HEART: RR S1S2 ABD: Obese, BS+, Soft and nontender Lower extremities: edema SKIN: nonjaundiced Neuro: grossly intact. H&P: Results Labs Labs: Short CBC 01/13/25 Range/Units 07:02 WBC 14.1 H (4.5-10.0) K/mm3 Hgb 13.0 L (14.0-18.0) g/dL Hct 39.1 L (42.0-52.0) % Plt Count 250 (150-375) k/mm3 BMP 01/13/25 07:01 Sodium 135 L Potassium 3.9 Chloride 102 Carbon Dioxide 22 BUN 12 Creatinine 0.89 Glucose 121 H Calcium 8.9 Cardiac Enzymes 01/13/25 01/13/25 Range/Units 07:55 11:12 Troponin I < 0.012 < 0.012 (0.000-0.034) ng/mL Liver Function 01/13/25 Range/Units 07:01 Total Bilirubin 0.6 (0.2-1.3) mg/dL AST 39 (17-59) U/L ALT 45 (6-50) U/L Alkaline Phosphatase 112 (38-126) U/L Albumin 4.3 (3.5-5.1) g/dL Assessment and Plan Assessment and plan (1) Hypoxic respiratory failure: Code(s): J96.91 - Respiratory failure, unspecified with hypoxia Status: Acute (2) Flash pulmonary edema: Code(s): J81.0 - Acute pulmonary edema Status: Acute (3) HTN (hypertension), benign: Code(s): I10 - Essential (primary) hypertension Status: Acute Plan 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
[2025-01-13] MEDS: levoFLOXacin 750 MG/D5W 150 ML 750 MG/150 ML BAG 100 MG IVPB (17:12)
[2025-01-13] MEDS: IPRATROPIUM 0.5 MG/ALBUTEROL SULFATE 2.5 MG AMPUL.NEB 3 ML INHALATION (19:38)
[2025-01-14] VITALS (20 sets, daily range): BP systolic 115–132; BP diastolic 64–81; PULSE 76–107; RESP 16–26; TEMP 36.7–37.1; O2SAT 92–98
[2025-01-14] MEDS: IPRATROPIUM 0.5 MG/ALBUTEROL SULFATE 2.5 MG AMPUL.NEB 3 ML INHALATION ×4 (01:15→19:14)
[2025-01-14 06:03] LABS: Hematocrit 37.7 % (42.0-52.0); Hemoglobin 12.4 g/dL (14.0-18.0); Mean Corpuscular HGB Conc 32.9 g/dl (32-36); Mean Corpuscular Hemoglobin 31.7 pg (26-34); Mean Corpuscular Volume 96.4 fl (80-100); Mean Platelet Volume 8.4 fl (7.4-10.4); Platelet Count Result 241 k/mm3 (150-375); Red Blood Count 3.91 M/mm3 (4.6-6.20); Red Cell Distribution Width 13.4 % (11.5-14.5)
[2025-01-14 06:19] LABS: Anion Gap 9 mmol/L (4-12); Blood Urea Nitrogen 17 mg/dL (9-20); Calcium 8.8 mg/dL (8.4-10.2); Carbon Dioxide 27 mmol/L (22-30); Chloride 99 mmol/L (98-107); Estimated CRCL calculation 79 ml/min; Estimated Glomerular Filt Rate > 60; Glucose 123 mg/dL (65-110); Magnesium 2.4 mg/dL (1.6-2.3); Potassium 3.9 mmol/L (3.4-5.0); Sodium 135 mmol/L (137-145)
[2025-01-14] MEDS: ENOXAPARIN 40 MG/0.4 ML SYRINGE SUB-Q (07:47)
[2025-01-14] MEDS: amLODIPine BESYLATE 10 MG TABLET PO (07:47)
[2025-01-14] MEDS: guaiFENesin/DEXTROMETHORPHAN 10 ML UDC 5 ML PO (07:48)
[2025-01-14] MEDS: ROSUVASTATIN 10 MG TABLET PO (07:48)
[2025-01-14] MEDS: IRBESARTAN 150 MG TABLET PO (07:49)
[2025-01-14] MEDS: FUROSEMIDE INJ 40 MG/4 ML VIAL IV PUSH ×2 (07:49→16:05)
[2025-01-14] MEDS: METOPROLOL SUCCINATE EXT REL 100 MG TABCR PO (07:49)
--- NOTE | 2025-01-14 08:29 | IVDEFINITY ---
Prior to administration of IV Definity the patient was educated on the risks and benefits of the imaging enhancing agent including potential adverse side effects. The patient verbalized understanding. Allergies were verified. No exclusion criteria were identified and at least one of the following inclusion criteria were met: 1) physician request, 2) patient technically difficult to image (per the [place] [employer]ocardi[employer] guidelines of two or more segments not discernable within the apical view), or 3) questionable left ventricular function. ?
--- NOTE | 2025-01-14 09:26 | PM.CNPUL ---
Assessment and Plan Assessment and plan (1) Hypoxic respiratory failure: Code(s): J96.91 - Respiratory failure, unspecified with hypoxia Status: Acute Assessment and Plan: This 70-year-old male patient, with a significant history of long-term smoking, obesity, and a recent diagnosis of obstructive sleep apnea managed with CPAP, presented with an acute illness characterized by cough, shortness of breath, and hypoxemia. A chest CT scan revealed no active infiltrates, but mild bronchiectasis was noted. On physical examination, mild expiratory wheezing was observed. The combination of the patient's history and diagnostic findings suggests a diagnosis of acute bronchitis, likely superimposed on underlying obstructive airway disease. The patient has no hypercapnia and is currently stable, requiring only supplemental oxygen. It is suspected that his chronic lower extremity edema is related to sleep-disordered breathing with chronic nocturnal hypoxemia, rather than congestive heart failure. The bronchiectasis is mild and does not require specific treatment at this time. No need to continue with BiPAP support either. Patient could bring own CPAP machine to use at night although he may get discharged soon. Plan: Continue nebulized short-acting bronchodilators. Administer prednisone 40 mg orally once daily for 5 days. Maintain current antibiotic regimen to cover atypical organisms. Anticipate discharge home soon. (2) Edema of both lower legs: Code(s): R60.0 - Localized edema Status: Acute (3) Smoker: Code(s): F17.200 - Nicotine dependence, unspecified, uncomplicated Status: Acute (4) Acute bronchitis: Code(s): J20.9 - Acute bronchitis, unspecified Status: Acute (5) SUJEY (obstructive sleep apnea): Code(s): G47.33 - Obstructive sleep apnea (adult) (pediatric) Status: Acute History of Present Illness History of Present Illness Consult date: 01/14/25 Chief complaint: Hypoxic resp failure Narrative: This 70-year-old man presented with shortness of breath of 3 days duration. The patient is a smoker for approximately 50 years. His past medical history significant for hypertension and sleep apnea for which he recently started using CPAP. He was in his usual state of health until approximately 3 days prior to this admission when he started to have cough along with some shortness of breath. He describes no wheezing. He had intense a bouts of cough. He did night chest pain palpitations hemoptysis fever chills. He has had lower extremity edema for approximately 1 year. He never had history of lung disease. Patient was brought in by EMS who placed him on supplemental oxygen because of hypoxemia. He used BiPAP support last night. Currently he is on supplemental oxygen via nasal cannula. He has no significant shortness of breath while breathing oxygen. 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 Regarding obstructive sleep apnea, he had a home sleep study and has been using CPAP. He thinks his CPAP pressure is around 9 cm. He started using CPAP within the last 2 weeks. He noticed no significant improvement of his quality of sleep. Upon evaluation with a chest CT, he was found to have mild bronchiectasis but no infiltrates. PCR testing for common viruses or negative. Currently on levofloxacin and short-acting bronchodilators. Review of Systems Review of Systems: All systems reviewed & are unremarkable except as noted in HPI and below (HPI and below) [facility] Past Medical History Medical History (Updated 01/14/25 @ 09:33 by Himanshu Cee MD) SUJEY (obstructive sleep apnea) Hypertension Hyperlipidemia Family History Family History Sibling Family history of rheumatoid arthritis Family history of cardiovascular disease Family history of diabetes mellitus in first degree relative Family history of malignant neoplasm of breast in first degree relative Father Cerebrovascular accident Mother Family history of pancreatic cancer Social History Social History Smoking packs per day: 1 Smoking cigarettes per day: 20.0 Years smoked: 40 Smoking pack-years: 40.00 Smoking status: Current every day smoker Alcohol intake: current Drinks per week: 10 Substance use: never Substance use type: does not use Do You Feel Safe in your Home?: Yes Lack of Transportation: No Lack of Food: Never True Current Housing: I Have Housing Concerned About Future Housing: No Difficulty Paying Gas/Electric Bills: No Difficulty Paying for Meds: No Currently Unemployed: No Education: Decline to Answer Difficulty w/ Childcare or Family Care: No Living arrangements: alone Spiritual care concerns: No Meds Home Medications and Allergies Home Medications ?Medication ?Instructions ?Recorded ?Confirmed ?Type amlodipine 10 mg tablet 10 mg PO DAILY 07/07/21 01/13/25 History rosuvastatin 10 mg tablet 10 mg PO DAILY 07/07/21 01/13/25 History irbesartan 150 mg tablet 150 mg PO DAILY 01/13/25 01/13/25 History metoprolol succinate 100 mg 100 mg PO DAILY 01/13/25 01/13/25 History tablet,extended release 24 hr Allergies Allergy/AdvReac Type Severity Reaction Status Date / Time No Known Allergies Allergy Verified 01/13/25 13:06 Vital Signs Vital Signs - 24 hr 01/13/25 10:15 01/13/25 10:50 01/13/25 11:20 Temperature Pulse Rate 87 101 H Respiratory Rate 22 H 23 H Blood Pressure 156/77 H Pulse Oximetry 100 98 97 Oxygen Delivery BiPAP Nasal Cannula Oxygen Flow Rate 4 01/13/25 11:30 01/13/25 11:30 01/13/25 13:37 Temperature Pulse Rate 103 H Respiratory Rate 20 Blood Pressure 152/77 H Pulse Oximetry 95 95 95 Oxygen Delivery Nasal Cannula Nasal Cannula Oxygen Flow Rate 4 4 01/13/25 14:22 01/13/25 15:38 01/13/25 16:44 Temperature 36.3 C L 36.2 C L Pulse Rate 102 H 103 H 108 H Respiratory Rate 18 22 H Blood Pressure 139/54 L 140/70 Pulse Oximetry 98 97 Oxygen Delivery Oxygen Flow Rate 01/13/25 19:38 01/13/25 19:38 01/13/25 19:50 Temperature Pulse Rate 105 H 105 H 104 H Respiratory Rate 26 H 26 H 20 Blood Pressure Pulse Oximetry 95 Oxygen Delivery Nasal Cannula Oxygen Flow Rate 4 01/13/25 20:00 01/13/25 20:00 01/13/25 22:15 Temperature 36.9 C Pulse Rate 100 10 L 93 Respiratory Rate 18 22 H Blood Pressure 122/68 Pulse Oximetry 96 98 Oxygen Delivery BiPAP Oxygen Flow Rate 01/14/25 00:00 01/14/25 01:15 01/14/25 01:30 Temperature Pulse Rate 95 90 98 Respiratory Rate 26 H 24 H Blood Pressure Pulse Oximetry Oxygen Delivery Oxygen Flow Rate 01/14/25 05:41 01/14/25 07:23 01/14/25 07:36 Temperature 37.1 C Pulse Rate 91 80 Respiratory Rate 20 20 Blood Pressure 118/81 Pulse Oximetry 98 93 Oxygen Delivery Nasal Cannula Oxygen Flow Rate 2 01/14/25 07:40 01/14/25 07:46 01/14/25 07:49 Temperature Pulse Rate 76 93 93 Respiratory Rate 20 Blood Pressure 129/69 Pulse Oximetry 96 Oxygen Delivery Oxygen Flow Rate 01/14/25 08:00 Temperature Pulse Rate Respiratory Rate Blood Pressure Pulse Oximetry 96 Oxygen Delivery Nasal Cannula Oxygen Flow Rate 2 Exam Narrative: GENERAL APPEARANCE: Well developed, well nourished, alert and cooperative, and appears to be in no acute distress while on supplemental oxygen SKIN: Inspection of the skin reveals no rashes, ulcerations or petechiae. HEENT: Sclerae anicteric and conjunctivae pink and moist. Extraocular movements were intact and pupils were equal, round, and reactive to light. The oral mucosa, hard and soft palate, tongue and posterior pharynx were normal. NECK: Supple. There was no thyroid enlargement, and no tenderness, or masses were felt. CHEST: Normal AP diameter and normal contour without any kyphoscoliosis. LUNGS: Mild expiratory wheezing CARDIAC: There was a regular rate and rhythm without any murmurs, gallops, rubs. ABDOMEN: Soft and nontender with normal bowel sounds. There was no organomegaly. LYMPH NODES: No lymphadenopathy was appreciated in the neck. EXTREMITIES: No cyanosis, clubbing; 1 +pedal edema NEUROLOGIC: Alert and oriented x 3. Normal affect. Results Laboratory Findings 01/14/25 05:42 01/14/25 05:42 ABG, PT/INR, D-dimer: PT/INR, D-dimer D-Dimer 0.41 ug/mL (<0.48) 01/13/25 07:01 Abnormal lab findings: Abnormal Labs 01/13/25 01/13/25 01/13/25 07:01 07:02 07:55 WBC 14.1 H RBC 4.03 L Hgb 13.0 L Hct 39.1 L Lymph % (Auto) 14.1 L [place] % (Auto) 9.8 H Eos % (Auto) 7.3 H [place] # (Auto) 1.4 H Eos # (Auto) 1.0 H Abs Immat Gran (auto) 0.05 H Absolute Neuts (auto) 9.6 H VBG pO2 113.3 H VBG HCO3 22.9 L Sodium 135 L Glucose 121 H Magnesium 01/14/25 05:42 WBC 15.0 H RBC 3.91 L Hgb 12.4 L Hct 37.7 L Lymph % (Auto) [place] % (Auto) Eos % (Auto) [place] # (Auto) Eos # (Auto) Abs Immat Gran (auto) Absolute Neuts (auto) VBG pO2 VBG HCO3 Sodium 135 L Glucose 123 H Magnesium 2.4 H
[2025-01-14] MEDS: predniSONE 20 MG TABLET 40 MG PO (09:57)
--- NOTE | 2025-01-14 13:54 | PM.IMPN ---
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, several of coworker also sick with cough and short breath, CT scan of chest showed Cylindrical bronchiectasis, will start patient on Levaquin and duo neb, patient was seeb by rubber boots and shoes repairer suspect patient has a mild bronchiectasis, agree to continued antibiotics, patient has lower extremities swelling c/o nocturnal orthopnea and dyspnea suspect patient may have pulmonary edema, patient is treated with Lasix, cardiac echo is essentially normal, rubber boots and shoes repairer suspect lower extremity edema secondary to untreated obstructive sleep apnea patient is using hospital BIPAP, will monitor and have PT/OT evaluate the patient. 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 and has been breathing some nasty stuff, several of coworker also sick with cough and short breath, CT scan of chest showed Cylindrical bronchiectasis, will start patient on Levaquin and duo neb, patient was seeb by rubber boots and shoes repairer suspect patient has a mild bronchiectasis, agree to continued antibiotics, patient has lower extremities swelling c/o nocturnal orthopnea and dyspnea suspect patient may have pulmonary edema, patient is treated with Lasix, cardiac echo is essentially normal, rubber boots and shoes repairer suspect lower extremity edema secondary to untreated obstructive sleep apnea patient is using hospital BIPAP, will monitor and have PT/OT evaluate the patient. Review of Systems Review of Systems: All systems reviewed & are unremarkable except as noted in HPI and below Exam Narrative: Morbidly obese Patient is comfortable, NAD HEENT: eyes are clear and none icteric LUNGS: Bilateral fair entry with rales and rhonchi HEART: RR S1S2 ABD: Obese, BS+, Soft and nontender Lower extremities: edema SKIN: nonjaundiced Neuro: grossly intact. Objective Data Vital Signs Vital Signs: Vital Signs - 24 hr 01/13/25 14:22 01/13/25 15:38 01/13/25 16:44 Temperature 36.3 C L 36.2 C L Pulse Rate 102 H 103 H 108 H Respiratory Rate 18 22 H Blood Pressure 139/54 L 140/70 Pulse Oximetry 98 97 Oxygen Delivery Oxygen Flow Rate 01/13/25 19:38 01/13/25 19:38 01/13/25 19:50 Temperature Pulse Rate 105 H 105 H 104 H Respiratory Rate 26 H 26 H 20 Blood Pressure Pulse Oximetry 95 Oxygen Delivery Nasal Cannula Oxygen Flow Rate 4 01/13/25 20:00 01/13/25 20:00 01/13/25 22:15 Temperature 36.9 C Pulse Rate 100 10 L 93 Respiratory Rate 18 22 H Blood Pressure 122/68 Pulse Oximetry 96 98 Oxygen Delivery BiPAP Oxygen Flow Rate 01/14/25 00:00 01/14/25 01:15 01/14/25 01:30 Temperature Pulse Rate 95 90 98 Respiratory Rate 26 H 24 H Blood Pressure Pulse Oximetry Oxygen Delivery Oxygen Flow Rate 01/14/25 05:41 01/14/25 07:23 01/14/25 07:36 Temperature 37.1 C Pulse Rate 91 80 Respiratory Rate 20 20 Blood Pressure 118/81 Pulse Oximetry 98 93 Oxygen Delivery Nasal Cannula Oxygen Flow Rate 2 01/14/25 07:40 01/14/25 07:46 01/14/25 07:49 Temperature Pulse Rate 76 93 93 Respiratory Rate 20 Blood Pressure 129/69 Pulse Oximetry 96 Oxygen Delivery Oxygen Flow Rate 01/14/25 08:00 01/14/25 13:38 Temperature Pulse Rate 80 Respiratory Rate 20 Blood Pressure Pulse Oximetry 96 Oxygen Delivery Nasal Cannula Oxygen Flow Rate 2 Intake/Output Intake/Output: Intake & Output 01/11/25 01/12/25 01/13/25 01/14/25 23:59 23:59 23:59 23:59 Intake Total 940 640 Output Total 2350 600 Balance -1410 40 Meds/Results Medications: Active Medications Generic Name Dose Route Start Last Admin Trade Name Freq PRN Reason Stop Dose Admin Albuterol/Ipratropium 3 ml 01/13/25 20:00 01/14/25 13:38 Ipratropium 0.5 Mg/Albuterol Sulfate 2.5 Mg Ampul.Neb 3 Ml INHALATION 3 ml Q6HRT ADRIANE Administration Amlodipine Besylate 10 mg 01/14/25 09:00 01/14/25 07:47 Amlodipine Besylate 10 Mg Tablet PO 10 mg DAILY ADRIANE Administration Enoxaparin Sodium 40 mg 01/14/25 09:00 01/14/25 07:47 Enoxaparin 40 Mg/0.4 Ml Syringe SUB-Q 40 mg DAILY ADRIANE Administration Furosemide 40 mg 01/13/25 17:00 01/14/25 07:49 Furosemide Inj 40 Mg/4 Ml Vial IV PUSH 40 mg BID ADRIANE Administration Guaifenesin/Dextromethorphan 5 ml 01/13/25 16:17 01/14/25 07:48 Guaifenesin/Dextromethorphan 10 Ml Udc PO 5 ml Q4H PRN Administration Cough Levofloxacin/Dextrose 750 mg in 150 mls @ 100 mls/hr 01/13/25 17:00 01/13/25 18:43 Levaquin 750 Mg/D5w 150 Ml IVPB Infused Q24H ADRIANE Infusion Irbesartan 150 mg 01/14/25 09:00 01/14/25 07:49 Irbesartan 150 Mg Tablet PO 150 mg DAILY ADRIANE Administration Metoprolol Succinate 100 mg 01/14/25 09:00 01/14/25 07:49 Metoprolol Succinate Ext Rel 100 Mg Tabcr PO 100 mg DAILY ADRIANE Administration Prednisone 40 mg 01/14/25 09:40 01/14/25 09:57 Prednisone 20 Mg Tablet PO 40 mg DAILY@0800 ADRIANE Administration Rosuvastatin Calcium 10 mg 01/14/25 09:00 01/14/25 07:48 Rosuvastatin 10 Mg Tablet PO 10 mg DAILY ADRIANE Administration Radiology Results: ITS Impressions Venous Doppler Study 01/13/25 08:36 IMPRESSION: 1. No deep venous thrombosis. Chest X-Ray 01/13/25 08:40 IMPRESSION: 1. No acute cardiopulmonary disease. Chest CT 01/13/25 10:58 IMPRESSION: Cylindrical bronchiectasis. No focal infiltrate. Labs Labs: Laboratory Results - last 24 hr 01/14/25 05:42 WBC 15.0 H RBC 3.91 L Hgb 12.4 L Hct 37.7 L MCV 96.4 MCH 31.7 MCHC 32.9 RDW 13.4 Plt Count 241 MPV 8.4 Sodium 135 L Potassium 3.9 Chloride 99 Carbon Dioxide 27 Anion Gap 9 BUN 17 Creatinine 0.91 Estim Creat Clear Calc 79 Estimated GFR > 60 Glucose 123 H Calcium 8.8 Magnesium 2.4 H
[2025-01-14] MEDS: levoFLOXacin 750 MG/D5W 150 ML 750 MG/150 ML BAG 100 MG IVPB (16:05)
[2025-01-14] MEDS: ACETAMINOPHEN 325 MG TABLET 650 MG PO (21:26)
[2025-01-14] MEDS: WATER FOR IRRIGATION, STERILE 1,000 ML BOTTLE 1000 ML (22:21)
[2025-01-14] MEDS: WATER FOR IRRIGATION, STERILE 500 ML BOTTLE (22:42)
[2025-01-15] VITALS (20 sets, daily range): BP systolic 112–146; BP diastolic 56–96; PULSE 79–109; RESP 18–22; TEMP 36.2–36.9; O2SAT 92–100
[2025-01-15] MEDS: IPRATROPIUM 0.5 MG/ALBUTEROL SULFATE 2.5 MG AMPUL.NEB 3 ML INHALATION ×4 (01:29→21:28)
[2025-01-15 06:20] LABS: Hematocrit 39.9 % (42.0-52.0); Hemoglobin 12.9 g/dL (14.0-18.0); Mean Corpuscular HGB Conc 32.3 g/dl (32-36); Mean Corpuscular Hemoglobin 31.3 pg (26-34); Mean Corpuscular Volume 96.8 fl (80-100); Mean Platelet Volume 8.5 fl (7.4-10.4); Platelet Count Result 275 k/mm3 (150-375); Red Blood Count 4.12 M/mm3 (4.6-6.20); Red Cell Distribution Width 13.5 % (11.5-14.5); White Blood Count 15.6 K/mm3 (4.5-10.0)
[2025-01-15 06:26] LABS: Anion Gap 6 mmol/L (4-12); Blood Urea Nitrogen 26 mg/dL (9-20); Calcium 8.8 mg/dL (8.4-10.2); Carbon Dioxide 31 mmol/L (22-30); Chloride 98 mmol/L (98-107); Estimated CRCL calculation 63 ml/min; Estimated Glomerular Filt Rate > 60; Glucose 93 mg/dL (65-110); Magnesium 2.1 mg/dL (1.6-2.3); Potassium 3.6 mmol/L (3.4-5.0); Sodium 135 mmol/L (137-145)
[2025-01-15] MEDS: predniSONE 20 MG TABLET 40 MG PO (09:05)
[2025-01-15] MEDS: ROSUVASTATIN 10 MG TABLET PO (09:05)
[2025-01-15] MEDS: METOPROLOL SUCCINATE EXT REL 100 MG TABCR PO (09:05)
[2025-01-15] MEDS: amLODIPine BESYLATE 10 MG TABLET PO (09:05)
[2025-01-15] MEDS: ENOXAPARIN 40 MG/0.4 ML SYRINGE SUB-Q (09:06)
[2025-01-15] MEDS: FUROSEMIDE INJ 40 MG/4 ML VIAL IV PUSH ×2 (09:06→17:15)
[2025-01-15] MEDS: IRBESARTAN 150 MG TABLET PO (09:06)
--- NOTE | 2025-01-15 09:18 | P.PNPL_ITS ---
Progress Note: A&P Assessment and Plan (1) SUJEY (obstructive sleep apnea): Code(s): G47.33 - Obstructive sleep apnea (adult) (pediatric) Status: Acute (2) Hypoxic respiratory failure: Code(s): J96.91 - Respiratory failure, unspecified with hypoxia Status: Acute Assessment and Plan: This 70-year-old male patient, with a significant history of long-term smoking, obesity, and a recent diagnosis of obstructive sleep apnea managed with CPAP, presented with an acute illness characterized by cough, shortness of breath, and hypoxemia. A chest CT scan revealed no active infiltrates, but mild bronchiectasis was noted. On physical examination, mild expiratory wheezing was observed. The combination of the patient's history and diagnostic findings suggests a diagnosis of acute bronchitis, likely superimposed on underlying obstructive airway disease. The patient has no hypercapnia and is currently stable, requiring only supplemental oxygen. It is suspected that his chronic lower extremity edema is related to sleep-disordered breathing with chronic nocturnal hypoxemia, rather than congestive heart failure. The bronchiectasis is mild and does not require specific treatment at this time.. On today's exam he continues to have expiratory wheezing. Plan: Continue with current regimen of antibiotics, oral steroids, short- acting acting bronchodilators, DVT prophylaxis and supplemental oxygen as prescribed. Will continue to monitor the patient's respiratory status along with you. (3) Smoker: Code(s): F17.200 - Nicotine dependence, unspecified, uncomplicated Status: Acute (4) COPD exacerbation: Code(s): J44.1 - Chronic obstructive pulmonary disease with (acute) exacerbation Status: Acute Subjective Date/time seen: 01/15/25 09:18 Interval history: Patient has no new respiratory symptoms. Used own CPAP device last night. He remains on supplemental oxygen but at a lower rate. He did not sleep well last night. Less coughing. Review of Systems Review of Systems: All systems reviewed & are unremarkable except as noted in HPI and below (HPI and below) Exam Narrative: GENERAL APPEARANCE: Well developed, well nourished, alert and cooperative, and appears to be in no acute distress while on supplemental oxygen SKIN: Inspection of the skin reveals no rashes, ulcerations or petechiae. HEENT: Sclerae anicteric and conjunctivae pink and moist. Extraocular movements were intact and pupils were equal, round, and reactive to light. The oral mucosa, hard and soft palate, tongue and posterior pharynx were normal. NECK: Supple. There was no thyroid enlargement, and no tenderness, or masses were felt. CHEST: Normal AP diameter and normal contour without any kyphoscoliosis. LUNGS: Mild expiratory wheezing CARDIAC: There was a regular rate and rhythm without any murmurs, gallops, rubs. ABDOMEN: Soft and nontender with normal bowel sounds. There was no organomegaly. LYMPH NODES: No lymphadenopathy was appreciated in the neck. EXTREMITIES: No cyanosis, clubbing; 1 +pedal edema NEUROLOGIC: Alert and oriented x 3. Normal affect. Objective Data Vital Signs Vital Signs: Vital Signs - 24 hr 01/14/25 12:00 01/14/25 13:38 01/14/25 14:17 Temperature 36.8 C Pulse Rate 82 80 98 Respiratory Rate 20 16 Blood Pressure 132/64 Pulse Oximetry 95 Oxygen Delivery Oxygen Flow Rate Fraction of Inspired Oxygen 01/14/25 16:00 01/14/25 16:11 01/14/25 19:35 Temperature Pulse Rate 93 103 H Respiratory Rate 18 Blood Pressure Pulse Oximetry 94 Oxygen Delivery Room Air Oxygen Flow Rate Fraction of Inspired Oxygen 01/14/25 19:44 01/14/25 19:44 01/14/25 20:02 Temperature Pulse Rate 91 107 H Respiratory Rate 18 Blood Pressure Pulse Oximetry 92 Oxygen Delivery Room Air Oxygen Flow Rate Fraction of Inspired Oxygen 21 01/14/25 21:04 01/14/25 21:04 01/14/25 22:55 Temperature 36.7 C Pulse Rate 102 H 100 Respiratory Rate 20 Blood Pressure 115/66 Pulse Oximetry 94 92 92 Oxygen Delivery CPAP CPAP Oxygen Flow Rate Fraction of Inspired Oxygen 01/15/25 00:02 01/15/25 01:29 01/15/25 01:45 Temperature Pulse Rate 91 98 103 H Respiratory Rate 20 20 Blood Pressure Pulse Oximetry Oxygen Delivery Oxygen Flow Rate Fraction of Inspired Oxygen 01/15/25 04:02 01/15/25 05:23 01/15/25 08:10 Temperature 36.7 C Pulse Rate 109 H 108 H Respiratory Rate 22 H Blood Pressure 146/81 H Pulse Oximetry 93 94 Oxygen Delivery Nasal Cannula Oxygen Flow Rate 2 Fraction of Inspired Oxygen 01/15/25 08:10 01/15/25 08:23 01/15/25 09:05 Temperature Pulse Rate 104 H 102 H 98 Respiratory Rate 20 20 Blood Pressure Pulse Oximetry Oxygen Delivery Oxygen Flow Rate Fraction of Inspired Oxygen Intake/Output Intake/Output: Intake & Output 01/12/25 01/13/25 01/14/25 01/15/25 23:59 23:59 23:59 23:59 Intake Total 940 2370 600 Output Total 2350 2450 400 Balance -1410 -80 200 Meds/Results Medications: Active Medications Generic Name Dose Route Start Last Admin Trade Name Freq PRN Reason Stop Dose Admin Acetaminophen 650 mg 01/14/25 21:14 01/14/25 21:26 Acetaminophen 325 Mg Tablet PO 650 mg Q4H PRN Administration Headache Albuterol/Ipratropium 3 ml 01/13/25 20:00 01/15/25 08:10 Ipratropium 0.5 Mg/Albuterol Sulfate 2.5 Mg Ampul.Neb 3 Ml INHALATION 3 ml Q6HRT ADRIANE Administration Amlodipine Besylate 10 mg 01/14/25 09:00 01/15/25 09:05 Amlodipine Besylate 10 Mg Tablet PO 10 mg DAILY ADRIANE Administration Enoxaparin Sodium 40 mg 01/14/25 09:00 01/15/25 09:06 Enoxaparin 40 Mg/0.4 Ml Syringe SUB-Q 40 mg DAILY ADRIANE Administration Furosemide 40 mg 01/13/25 17:00 01/15/25 09:06 Furosemide Inj 40 Mg/4 Ml Vial IV PUSH 40 mg BID ADRIANE Administration Guaifenesin/Dextromethorphan 5 ml 01/13/25 16:17 01/14/25 07:48 Guaifenesin/Dextromethorphan 10 Ml Udc PO 5 ml Q4H PRN Administration Cough Levofloxacin/Dextrose 750 mg in 150 mls @ 100 mls/hr 01/13/25 17:00 01/14/25 17:35 Levaquin 750 Mg/D5w 150 Ml IVPB Infused Q24H ADRIANE Infusion Irbesartan 150 mg 01/14/25 09:00 01/15/25 09:06 Irbesartan 150 Mg Tablet PO 150 mg DAILY ADRIANE Administration Metoprolol Succinate 100 mg 01/14/25 09:00 01/15/25 09:05 Metoprolol Succinate Ext Rel 100 Mg Tabcr PO 100 mg DAILY ADRIANE Administration Prednisone 40 mg 01/14/25 09:40 01/15/25 09:05 Prednisone 20 Mg Tablet PO 40 mg DAILY@0800 ADRIANE Administration Rosuvastatin Calcium 10 mg 01/14/25 09:00 01/15/25 09:05 Rosuvastatin 10 Mg Tablet PO 10 mg DAILY ADRIANE Administration Radiology Results: ITS Impressions Venous Doppler Study 01/13/25 08:36 IMPRESSION: 1. No deep venous thrombosis. Chest X-Ray 01/13/25 08:40 IMPRESSION: 1. No acute cardiopulmonary disease. Chest CT 01/13/25 10:58 IMPRESSION: Cylindrical bronchiectasis. No focal infiltrate. Labs Labs: Laboratory Results - last 24 hr 01/15/25 05:43 WBC 15.6 H RBC 4.12 L Hgb 12.9 L Hct 39.9 L MCV 96.8 MCH 31.3 MCHC 32.3 RDW 13.5 Plt Count 275 MPV 8.5 Sodium 135 L Potassium 3.6 Chloride 98 Carbon Dioxide 31 H Anion Gap 6 BUN 26 H Creatinine 1.16 Estim Creat Clear Calc 63 Estimated GFR > 60 Glucose 93 Calcium 8.8 Magnesium 2.1
--- NOTE | 2025-01-15 15:53 | PM.IMPN ---
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, several of coworker also sick with cough and short breath, CT scan of chest showed Cylindrical bronchiectasis, will start patient on Levaquin and duo neb, patient was seen by radiography technician suspect patient has a mild bronchiectasis, agree to continued antibiotics, patient has lower extremities swelling c/o nocturnal orthopnea and dyspnea suspect patient may have pulmonary edema, patient is treated with Lasix, cardiac echo is essentially normal, radiography technician suspect lower extremity edema secondary to untreated obstructive sleep apnea patient is using hospital BIPAP, will monitor and have PT/OT evaluate the patient. patient still c/o cough and shortness of breath, seen by radiography technician and recommended to CPM over the weekend, today patient's sister is present in the room gave updates. 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 some nasty stuff, several of coworker also sick with cough and short breath, CT scan of chest showed Cylindrical bronchiectasis, will start patient on Levaquin and duo neb, patient was seen by radiography technician suspect patient has a mild bronchiectasis, agree to continued antibiotics, patient has lower extremities swelling c/o nocturnal orthopnea and dyspnea suspect patient may have pulmonary edema, patient is treated with Lasix, cardiac echo is essentially normal, radiography technician suspect lower extremity edema secondary to untreated obstructive sleep apnea patient is using hospital BIPAP, will monitor and have PT/OT evaluate the patient. patient still c/o cough and shortness of breath, seen by radiography technician and recommended to CPM over the weekend, today patient's sister is present in the room gave updates. Review of Systems Review of Systems: All systems reviewed & are unremarkable except as noted in HPI and below Exam Narrative: Morbidly obese Patient is comfortable, NAD HEENT: eyes are clear and none icteric LUNGS: Bilateral fair entry with rales and rhonchi HEART: RR S1S2 ABD: Obese, BS+, Soft and nontender Lower extremities: edema SKIN: nonjaundiced Neuro: grossly intact. Objective Data Vital Signs Vital Signs: Vital Signs - 24 hr 01/14/25 16:00 01/14/25 16:11 01/14/25 19:35 Temperature Pulse Rate 93 103 H Respiratory Rate 18 Blood Pressure Pulse Oximetry 94 Oxygen Delivery Room Air Oxygen Flow Rate Fraction of Inspired Oxygen 01/14/25 19:44 01/14/25 19:44 01/14/25 20:02 Temperature Pulse Rate 91 107 H Respiratory Rate 18 Blood Pressure Pulse Oximetry 92 Oxygen Delivery Room Air Oxygen Flow Rate Fraction of Inspired Oxygen 21 01/14/25 21:04 01/14/25 21:04 01/14/25 22:55 Temperature 36.7 C Pulse Rate 102 H 100 Respiratory Rate 20 Blood Pressure 115/66 Pulse Oximetry 94 92 92 Oxygen Delivery CPAP CPAP Oxygen Flow Rate Fraction of Inspired Oxygen 01/15/25 00:02 01/15/25 01:29 01/15/25 01:45 Temperature Pulse Rate 91 98 103 H Respiratory Rate 20 20 Blood Pressure Pulse Oximetry Oxygen Delivery Oxygen Flow Rate Fraction of Inspired Oxygen 01/15/25 04:02 01/15/25 05:23 01/15/25 08:00 Temperature 36.7 C Pulse Rate 109 H 108 H 100 Respiratory Rate 22 H Blood Pressure 146/81 H Pulse Oximetry 93 Oxygen Delivery Oxygen Flow Rate Fraction of Inspired Oxygen 01/15/25 08:10 01/15/25 08:10 01/15/25 08:23 Temperature Pulse Rate 104 H 102 H Respiratory Rate 20 20 Blood Pressure Pulse Oximetry 94 Oxygen Delivery Nasal Cannula Oxygen Flow Rate 2 Fraction of Inspired Oxygen 01/15/25 09:00 01/15/25 09:05 01/15/25 12:00 Temperature Pulse Rate 98 92 Respiratory Rate Blood Pressure Pulse Oximetry 94 Oxygen Delivery Nasal Cannula Oxygen Flow Rate 2 Fraction of Inspired Oxygen 01/15/25 14:42 01/15/25 14:42 01/15/25 14:57 Temperature Pulse Rate 82 84 Respiratory Rate 18 18 Blood Pressure Pulse Oximetry 100 Oxygen Delivery Nasal Cannula Oxygen Flow Rate 2 Fraction of Inspired Oxygen 01/15/25 15:08 Temperature 36.9 C Pulse Rate 92 Respiratory Rate 19 Blood Pressure 112/96 H Pulse Oximetry 100 Oxygen Delivery Oxygen Flow Rate Fraction of Inspired Oxygen Intake/Output Intake/Output: Intake & Output 01/12/25 01/13/25 01/14/25 01/15/25 23:59 23:59 23:59 23:59 Intake Total 940 2370 1080 Output Total 2350 2450 400 Balance -1410 -80 680 Meds/Results Medications: Active Medications Generic Name Dose Route Start Last Admin Trade Name Freq PRN Reason Stop Dose Admin Acetaminophen 650 mg 01/14/25 21:14 01/14/25 21:26 Acetaminophen 325 Mg Tablet PO 650 mg Q4H PRN Administration Headache Albuterol/Ipratropium 3 ml 01/13/25 20:00 01/15/25 14:42 Ipratropium 0.5 Mg/Albuterol Sulfate 2.5 Mg Ampul.Neb 3 Ml INHALATION 3 ml Q6HRT ADRIANE Administration Amlodipine Besylate 10 mg 01/14/25 09:00 01/15/25 09:05 Amlodipine Besylate 10 Mg Tablet PO 10 mg DAILY ADRIANE Administration Enoxaparin Sodium 40 mg 01/14/25 09:00 01/15/25 09:06 Enoxaparin 40 Mg/0.4 Ml Syringe SUB-Q 40 mg DAILY ADRIANE Administration Furosemide 40 mg 01/13/25 17:00 01/15/25 09:06 Furosemide Inj 40 Mg/4 Ml Vial IV PUSH 40 mg BID ADRIANE Administration Guaifenesin/Dextromethorphan 5 ml 01/13/25 16:17 01/14/25 07:48 Guaifenesin/Dextromethorphan 10 Ml Udc PO 5 ml Q4H PRN Administration Cough Levofloxacin/Dextrose 750 mg in 150 mls @ 100 mls/hr 01/13/25 17:00 01/14/25 17:35 Levaquin 750 Mg/D5w 150 Ml IVPB Infused Q24H ADRIANE Infusion Irbesartan 150 mg 01/14/25 09:00 01/15/25 09:06 Irbesartan 150 Mg Tablet PO 150 mg DAILY ADRIANE Administration Metoprolol Succinate 100 mg 01/14/25 09:00 01/15/25 09:05 Metoprolol Succinate Ext Rel 100 Mg Tabcr PO 100 mg DAILY ARDIANE Administration Prednisone 40 mg 01/14/25 09:40 01/15/25 09:05 Prednisone 20 Mg Tablet PO 40 mg DAILY@0800 ADRIANE Administration Rosuvastatin Calcium 10 mg 01/14/25 09:00 01/15/25 09:05 Rosuvastatin 10 Mg Tablet PO 10 mg DAILY ADRIANE Administration Radiology Results: ITS Impressions Venous Doppler Study 01/13/25 08:36 IMPRESSION: 1. No deep venous thrombosis. Chest X-Ray 01/13/25 08:40 IMPRESSION: 1. No acute cardiopulmonary disease. Chest CT 01/13/25 10:58 IMPRESSION: Cylindrical bronchiectasis. No focal infiltrate. Labs Labs: Laboratory Results - last 24 hr 01/15/25 05:43 WBC 15.6 H RBC 4.12 L Hgb 12.9 L Hct 39.9 L MCV 96.8 MCH 31.3 MCHC 32.3 RDW 13.5 Plt Count 275 MPV 8.5 Sodium 135 L Potassium 3.6 Chloride 98 Carbon Dioxide 31 H Anion Gap 6 BUN 26 H Creatinine 1.16 Estim Creat Clear Calc 63 Estimated GFR > 60 Glucose 93 Calcium 8.8 Magnesium 2.1
[2025-01-15] MEDS: levoFLOXacin 750 MG/D5W 150 ML 750 MG/150 ML BAG 100 MG IVPB (17:15)
[2025-01-16] VITALS (18 sets, daily range): BP systolic 117–127; BP diastolic 65–81; PULSE 72–105; RESP 12–19; TEMP 36.4–36.6; O2SAT 92–93
[2025-01-16] MEDS: IPRATROPIUM 0.5 MG/ALBUTEROL SULFATE 2.5 MG AMPUL.NEB 3 ML INHALATION ×4 (02:01→20:33)
[2025-01-16 06:24] LABS: Hemoglobin 13.1 g/dL (14.0-18.0); Mean Corpuscular HGB Conc 32.8 g/dl (32-36); Mean Corpuscular Hemoglobin 32.3 pg (26-34); Mean Corpuscular Volume 98.5 fl (80-100); Mean Platelet Volume 8.3 fl (7.4-10.4); Platelet Count Result 252 k/mm3 (150-375); Red Blood Count 4.06 M/mm3 (4.6-6.20); Red Cell Distribution Width 13.4 % (11.5-14.5); White Blood Count 14.5 K/mm3 (4.5-10.0)
[2025-01-16 06:37] LABS: Anion Gap 7 mmol/L (4-12); Blood Urea Nitrogen 20 mg/dL (9-20); Calcium 8.9 mg/dL (8.4-10.2); Carbon Dioxide 31 mmol/L (22-30); Chloride 97 mmol/L (98-107); Estimated CRCL calculation 69 ml/min; Estimated Glomerular Filt Rate > 60; Glucose 89 mg/dL (65-110); Magnesium 2.2 mg/dL (1.6-2.3); Potassium 3.6 mmol/L (3.4-5.0); Sodium 135 mmol/L (137-145)
[2025-01-16] MEDS: predniSONE 20 MG TABLET 40 MG PO (10:08)
[2025-01-16] MEDS: IRBESARTAN 150 MG TABLET PO (10:09)
[2025-01-16] MEDS: ROSUVASTATIN 10 MG TABLET PO (10:09)
[2025-01-16] MEDS: amLODIPine BESYLATE 10 MG TABLET PO (10:10)
[2025-01-16] MEDS: METOPROLOL SUCCINATE EXT REL 100 MG TABCR PO (10:10)
[2025-01-16] MEDS: FUROSEMIDE INJ 40 MG/4 ML VIAL IV PUSH ×2 (10:12→18:32)
[2025-01-16] MEDS: ENOXAPARIN 40 MG/0.4 ML SYRINGE SUB-Q (10:13)
--- NOTE | 2025-01-16 10:22 | PM.PNPUL ---
Progress Note: A&P Assessment and Plan (1) COPD exacerbation: Code(s): J44.1 - Chronic obstructive pulmonary disease with (acute) exacerbation Status: Acute Assessment and Plan: 01/15/25: This 70-year-old male patient, with a significant history of long-term smoking, obesity, and a recent diagnosis of obstructive sleep apnea managed with CPAP, presented with an acute illness characterized by cough, shortness of breath, and hypoxemia. A chest CT scan revealed no active infiltrates, but mild bronchiectasis was noted. On physical examination, mild expiratory wheezing was observed. The combination of the patient's history and diagnostic findings suggests a diagnosis of acute bronchitis, likely superimposed on underlying obstructive airway disease. The patient has no hypercapnia and is currently stable, requiring only supplemental oxygen. It is suspected that his chronic lower extremity edema is related to sleep-disordered breathing with chronic nocturnal hypoxemia, rather than congestive heart failure. The bronchiectasis is mild and does not require specific treatment at this time.. On today's exam he continues to have expiratory wheezing. Plan: Continue with current regimen of antibiotics, oral steroids, short-acting acting bronchodilators, DVT prophylaxis and supplemental oxygen as prescribed. Will continue to monitor the patient's respiratory status along with you. 01/16/25: overall the patient continues to improve. States he is 80% back to his normal. His cough is gone. His phlegm is 80% better. He has no hemoptysis. He is afebrile. White blood cell count 14.5, creatinine 1.05. Last night he slept with room air and did not uses home CPAP 9 machine. Currently is on room air with saturations 93%. Patient is on Lasix 40 IV b.i.d. and cumulative he is -1 L since admission. Plan: continue prednisone 40 mg p.o. q.day, day 3. Continue DuoNebs q.6 hours. Continue Levaquin day 4. Patient is on Lasix 40 IV b.i.d. for fluid overload, management per hospitalist. Discussed with Dr. Lee, will follow with you. (2) SUJEY (obstructive sleep apnea): Code(s): G47.33 - Obstructive sleep apnea (adult) (pediatric) Status: Acute Assessment and Plan: Patient has SUJEY and is on CPAP 9 at home. He uses room air at home. 01/16/25: Plan: Tonight patient will uses home CPAP unit on room air and I will obtain an overnight oximetry to assess oxygenation. Subjective Date/time seen: 01/16/25 10:22 Interval history: 01/16/25: overall the patient continues to improve. States he is 80% back to his normal. His cough is gone. His phlegm is 80% better. He has no hemoptysis. He is afebrile. White blood cell count 14.5, creatinine 1.05. Last night he slept with room air and did not uses home CPAP 9 machine. Currently is on room air with saturations 93%. Patient is on Lasix 40 IV b.i.d. and cumulative he is -1 L since admission. Review of Systems Constitutional: Constitutional: Reports no additional constitutional complaints Eyes: Eyes: Reports no additional eye complaints ENT: Reports system reviewed and no additional complaints, except as documented Cardiovascular: Cardiovascular: Reports no additional cardiovascular complaints Respiratory: Respiratory: Reports no additional respiratory complaints Gastrointestinal: Gastrointestinal: Reports no additional gastrointestinal complaints Musculoskeletal: Musculoskeletal: Reports no additional musculoskeletal complaints Neurologic: Reports system reviewed and no additional complaints, except as documented Psychiatric: Psychiatric: Reports no additional psychiatric complaints Endocrine: Endocrine: Reports no additional endocrine complaints Hematologic/Lymphatic: Hematologic/Lymphatic: Reports no additional hematologic/lymphatic complaints Allergic/Immunologic: Allergic/Immunologic: Reports no additional allergic/immunologic complaints Exam Const: General: cooperative, healthy appearing and comfortable Orientation/consciousness: oriented to person, oriented to place and oriented to time HENMT: Head: normal to inspection Ears: hearing grossly normal bilaterally Eyes: General: appearance normal, both eyes and all related structures Neck: Neck: normal visual inspection Chest: Chest palpation & inspection: normal inspection of the chest Resp: Effort & Inspection: normal respiratory effort and able to speak in complete sentences Auscultation: no crackles, no rales, no rhonchi, wheezes and lung sounds not diminished Other: Mild end expiratory wheezes bilaterally Cardio: Jugular venous distension: no JVD GI: Inspection: normal to inspection GI Palp: No abdominal tenderness Skin: General skin exam: normal color Neuro: General: oriented to person, oriented to place and oriented to time Extrem: General: normal to inspection Other: improved edema per the patient Psych: Appearance: grossly normal Objective Data Vital Signs Vital Signs: Vital Signs - 24 hr 01/15/25 12:00 01/15/25 14:42 01/15/25 14:42 Temperature Pulse Rate 92 82 Respiratory Rate 18 Blood Pressure Pulse Oximetry 100 Oxygen Delivery Nasal Cannula Oxygen Flow Rate 2 01/15/25 14:57 01/15/25 15:08 01/15/25 16:00 Temperature 36.9 C Pulse Rate 84 92 95 Respiratory Rate 18 19 Blood Pressure 112/96 H Pulse Oximetry 100 Oxygen Delivery Oxygen Flow Rate 01/15/25 20:02 01/15/25 20:23 01/15/25 20:41 Temperature 36.2 C L Pulse Rate 94 86 Respiratory Rate 18 Blood Pressure 138/56 L Pulse Oximetry 93 92 Oxygen Delivery Nasal Cannula Oxygen Flow Rate 1 01/15/25 21:28 01/15/25 21:28 01/15/25 21:35 Temperature Pulse Rate 79 86 Respiratory Rate 18 18 Blood Pressure Pulse Oximetry 93 Oxygen Delivery Nasal Cannula Oxygen Flow Rate 1 01/16/25 00:02 01/16/25 02:02 01/16/25 02:09 Temperature Pulse Rate 89 102 H 105 H Respiratory Rate Blood Pressure Pulse Oximetry Oxygen Delivery Oxygen Flow Rate 01/16/25 04:02 01/16/25 04:32 01/16/25 09:48 Temperature 36.4 C L Pulse Rate 79 76 Respiratory Rate 12 Blood Pressure 127/77 Pulse Oximetry 92 93 Oxygen Delivery Room Air Oxygen Flow Rate 01/16/25 09:48 01/16/25 10:00 01/16/25 10:10 Temperature Pulse Rate 104 H 94 72 Respiratory Rate 18 18 Blood Pressure Pulse Oximetry Oxygen Delivery Oxygen Flow Rate Intake/Output Intake/Output: Intake & Output 01/13/25 01/14/25 01/15/25 01/16/25 23:59 23:59 23:59 23:59 Intake Total 940 2370 2570 1130 Output Total 2350 [address] [facility] -1410 -80 570 630 Meds/Results Medications: Active Medications Generic Name Dose Route Start Last Admin Trade Name Freq PRN Reason Stop Dose Admin Acetaminophen 650 mg 01/14/25 21:14 01/14/25 21:26 Acetaminophen 325 Mg Tablet PO 650 mg Q4H PRN Administration Headache Albuterol/Ipratropium 3 ml 01/13/25 20:00 01/16/25 09:47 Ipratropium 0.5 Mg/Albuterol Sulfate 2.5 Mg Ampul.Neb 3 Ml INHALATION 3 ml Q6HRT ADRIANE Administration Amlodipine Besylate 10 mg 01/14/25 09:00 01/16/25 10:10 Amlodipine Besylate 10 Mg Tablet PO 10 mg DAILY ADRIANE Administration Enoxaparin Sodium 40 mg 01/14/25 09:00 01/16/25 10:13 Enoxaparin 40 Mg/0.4 Ml Syringe SUB-Q 40 mg DAILY ADRIANE Administration Furosemide 40 mg 01/13/25 17:00 01/16/25 10:12 Furosemide Inj 40 Mg/4 Ml Vial IV PUSH 40 mg BID ADRIANE Administration Guaifenesin/Dextromethorphan 5 ml 01/13/25 16:17 01/14/25 07:48 Guaifenesin/Dextromethorphan 10 Ml Udc PO 5 ml Q4H PRN Administration Cough Levofloxacin/Dextrose 750 mg in 150 mls @ 100 mls/hr 01/13/25 17:00 01/15/25 18:45 Levaquin 750 Mg/D5w 150 Ml IVPB Infused Q24H ADRIANE Infusion Irbesartan 150 mg 01/14/25 09:00 01/16/25 10:09 Irbesartan 150 Mg Tablet PO 150 mg DAILY ADRIANE Administration Metoprolol Succinate 100 mg 01/14/25 09:00 01/16/25 10:10 Metoprolol Succinate Ext Rel 100 Mg Tabcr PO 100 mg DAILY ADRIANE Administration Prednisone 40 mg 01/14/25 09:40 01/16/25 10:08 Prednisone 20 Mg Tablet PO 40 mg DAILY@0800 ADRIANE Administration Rosuvastatin Calcium 10 mg 01/14/25 09:00 01/16/25 10:09 Rosuvastatin 10 Mg Tablet PO 10 mg DAILY ADRIANE Administration Radiology Results: ITS Impressions Venous Doppler Study 01/13/25 08:36 IMPRESSION: 1. No deep venous thrombosis. Chest X-Ray 01/13/25 08:40 IMPRESSION: 1. No acute cardiopulmonary disease. Chest CT 01/13/25 10:58 IMPRESSION: Cylindrical bronchiectasis. No focal infiltrate. Labs Labs: Laboratory Results - last 24 hr 01/16/25 06:06 WBC 14.5 H RBC 4.06 L Hgb 13.1 L Hct 40.0 L MCV 98.5 MCH 32.3 MCHC 32.8 RDW 13.4 Plt Count 252 MPV 8.3 Sodium 135 L Potassium 3.6 Chloride 97 L Carbon Dioxide 31 H Anion Gap 7 BUN 20 Creatinine 1.05 Estim Creat Clear Calc 69 Estimated GFR > 60 Glucose 89 Calcium 8.9 Magnesium 2.2
--- NOTE | 2025-01-16 13:45 | PM.IMPN ---
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, several of coworker also sick with cough and short breath, CT scan of chest showed Cylindrical bronchiectasis, will start patient on Levaquin and duo neb, patient was seen by analytics leader suspect patient has a mild bronchiectasis, agree to continued antibiotics, patient has lower extremities swelling c/o nocturnal orthopnea and dyspnea suspect patient may have pulmonary edema, patient is treated with Lasix, cardiac echo is essentially normal, analytics leader suspect lower extremity edema secondary to untreated obstructive sleep apnea patient is using hospital BIPAP, will monitor and have PT/OT evaluate the patient. patient still c/o cough and shortness of breath, seen by analytics leader and recommended to CPM over the weekend, on 01/15 patient's sister was present in the room gave updates. today patient is off oxygen stats feeling better, seen by Dr. Ace and discussed, will monitor overnight without oxygen will do apenea link on patient CPAP and will plan, possibly discharge patient tomorrow. 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 some nasty stuff, several of coworker also sick with cough and short breath, CT scan of chest showed Cylindrical bronchiectasis, will start patient on Levaquin and duo neb, patient was seen by analytics leader suspect patient has a mild bronchiectasis, agree to continued antibiotics, patient has lower extremities swelling c/o nocturnal orthopnea and dyspnea suspect patient may have pulmonary edema, patient is treated with Lasix, cardiac echo is essentially normal, analytics leader suspect lower extremity edema secondary to untreated obstructive sleep apnea patient is using hospital BIPAP, will monitor and have PT/OT evaluate the patient. patient still c/o cough and shortness of breath, seen by analytics leader and recommended to CPM over the weekend, on 01/15 patient's sister was present in the room gave updates. today patient is off oxygen stats feeling better, seen by Dr. Ace and discussed, will monitor overnight without oxygen will do apenea link on patient CPAP and will plan, possibly discharge patient tomorrow. Review of Systems Review of Systems: All systems reviewed & are unremarkable except as noted in HPI and below Exam Narrative: Morbidly obese Patient is comfortable, NAD HEENT: eyes are clear and none icteric LUNGS: Bilateral fair entry with rales and rhonchi HEART: RR S1S2 ABD: Obese, BS+, Soft and nontender Lower extremities: edema SKIN: nonjaundiced Neuro: grossly intact. Objective Data Vital Signs Vital Signs: Vital Signs - 24 hr 01/15/25 14:42 01/15/25 14:42 01/15/25 14:57 Temperature Pulse Rate 82 84 Respiratory Rate 18 18 Blood Pressure Pulse Oximetry 100 Oxygen Delivery Nasal Cannula Oxygen Flow Rate 2 01/15/25 15:08 01/15/25 16:00 01/15/25 20:02 Temperature 36.9 C Pulse Rate 92 95 94 Respiratory Rate 19 Blood Pressure 112/96 H Pulse Oximetry 100 Oxygen Delivery Oxygen Flow Rate 01/15/25 20:23 01/15/25 20:41 01/15/25 21:28 Temperature 36.2 C L Pulse Rate 86 Respiratory Rate 18 Blood Pressure 138/56 L Pulse Oximetry 93 92 93 Oxygen Delivery Nasal Cannula Nasal Cannula Oxygen Flow Rate 1 1 01/15/25 21:28 01/15/25 21:35 01/16/25 00:02 Temperature Pulse Rate 79 86 89 Respiratory Rate 18 18 Blood Pressure Pulse Oximetry Oxygen Delivery Oxygen Flow Rate 01/16/25 02:02 01/16/25 02:09 01/16/25 04:02 Temperature Pulse Rate 102 H 105 H 79 Respiratory Rate Blood Pressure Pulse Oximetry Oxygen Delivery Oxygen Flow Rate 01/16/25 04:32 01/16/25 08:00 01/16/25 09:48 Temperature 36.4 C L Pulse Rate 76 102 H Respiratory Rate 12 Blood Pressure 127/77 Pulse Oximetry 92 93 Oxygen Delivery Room Air Oxygen Flow Rate 01/16/25 09:48 01/16/25 10:00 01/16/25 10:10 Temperature Pulse Rate 104 H 94 72 Respiratory Rate 18 18 Blood Pressure Pulse Oximetry Oxygen Delivery Oxygen Flow Rate 01/16/25 13:40 Temperature 36.6 C Pulse Rate 87 Respiratory Rate 19 Blood Pressure 117/65 Pulse Oximetry 93 Oxygen Delivery Oxygen Flow Rate Intake/Output Intake/Output: Intake & Output 01/13/25 01/14/25 01/15/25 01/16/25 23:59 23:59 23:59 23:59 Intake Total 940 2370 2570 1610 Output Total 2350 2450 2000 500 Balance -1410 -80 570 1110 Meds/Results Medications: Active Medications Generic Name Dose Route Start Last Admin Trade Name Freq PRN Reason Stop Dose Admin Acetaminophen 650 mg 01/14/25 21:14 01/14/25 21:26 Acetaminophen 325 Mg Tablet PO 650 mg Q4H PRN Administration Headache Albuterol/Ipratropium 3 ml 01/13/25 20:00 01/16/25 09:47 Ipratropium 0.5 Mg/Albuterol Sulfate 2.5 Mg Ampul.Neb 3 Ml INHALATION 3 ml Q6HRT ADRIANE Administration Amlodipine Besylate 10 mg 01/14/25 09:00 01/16/25 10:10 Amlodipine Besylate 10 Mg Tablet PO 10 mg DAILY ADRIANE Administration Enoxaparin Sodium 40 mg 01/14/25 09:00 01/16/25 10:13 Enoxaparin 40 Mg/0.4 Ml Syringe SUB-Q 40 mg DAILY ADRIANE Administration Furosemide 40 mg 01/13/25 17:00 01/16/25 10:12 Furosemide Inj 40 Mg/4 Ml Vial IV PUSH 40 mg BID ADRIANE Administration Guaifenesin/Dextromethorphan 5 ml 01/13/25 16:17 01/14/25 07:48 Guaifenesin/Dextromethorphan 10 Ml Udc PO 5 ml Q4H PRN Administration Cough Levofloxacin/Dextrose 750 mg in 150 mls @ 100 mls/hr 01/13/25 17:00 01/15/25 18:45 Levaquin 750 Mg/D5w 150 Ml IVPB Infused Q24H ADRIANE Infusion Irbesartan 150 mg 01/14/25 09:00 01/16/25 10:09 Irbesartan 150 Mg Tablet PO 150 mg DAILY ADRIANE Administration Metoprolol Succinate 100 mg 01/14/25 09:00 01/16/25 10:10 Metoprolol Succinate Ext Rel 100 Mg Tabcr PO 100 mg DAILY ADRIANE Administration Prednisone 40 mg 01/14/25 09:40 01/16/25 10:08 Prednisone 20 Mg Tablet PO 40 mg DAILY@0800 ADRIANE Administration Rosuvastatin Calcium 10 mg 01/14/25 09:00 01/16/25 10:09 Rosuvastatin 10 Mg Tablet PO 10 mg DAILY ADRIANE Administration Radiology Results: ITS Impressions Venous Doppler Study 01/13/25 08:36 IMPRESSION: 1. No deep venous thrombosis. Chest X-Ray 01/13/25 08:40 IMPRESSION: 1. No acute cardiopulmonary disease. Chest CT 01/13/25 10:58 IMPRESSION: Cylindrical bronchiectasis. No focal infiltrate. Labs Labs: Laboratory Results - last 24 hr 01/16/25 06:06 WBC 14.5 H RBC 4.06 L Hgb 13.1 L Hct 40.0 L MCV 98.5 MCH 32.3 MCHC 32.8 RDW 13.4 Plt Count 252 MPV 8.3 Sodium 135 L Potassium 3.6 Chloride 97 L Carbon Dioxide 31 H Anion Gap 7 BUN 20 Creatinine 1.05 Estim Creat Clear Calc 69 Estimated GFR > 60 Glucose 89 Calcium 8.9 Magnesium 2.2
[2025-01-16] MEDS: levoFLOXacin 750 MG/D5W 150 ML 750 MG/150 ML BAG 100 MG IVPB (18:32)
[2025-01-16] MEDS: ACETAMINOPHEN 325 MG TABLET 650 MG PO (21:10)
[2025-01-17] VITALS (12 sets, daily range): BP systolic 110; BP diastolic 69; PULSE 71–108; RESP 16–20; TEMP 36.2; O2SAT 90–96
[2025-01-17] MEDS: IPRATROPIUM 0.5 MG/ALBUTEROL SULFATE 2.5 MG AMPUL.NEB 3 ML INHALATION ×2 (02:17→07:33)
[2025-01-17 06:15] LABS: Hematocrit 39.5 % (42.0-52.0); Hemoglobin 12.8 g/dL (14.0-18.0); Mean Corpuscular HGB Conc 32.4 g/dl (32-36); Mean Corpuscular Hemoglobin 31.5 pg (26-34); Mean Corpuscular Volume 97.3 fl (80-100); Mean Platelet Volume 8.5 fl (7.4-10.4); Platelet Count Result 255 k/mm3 (150-375); Red Blood Count 4.06 M/mm3 (4.6-6.20); Red Cell Distribution Width 13.3 % (11.5-14.5); White Blood Count 13.7 K/mm3 (4.5-10.0)
[2025-01-17 06:37] LABS: Anion Gap 9 mmol/L (4-12); Blood Urea Nitrogen 21 mg/dL (9-20); Calcium 8.9 mg/dL (8.4-10.2); Carbon Dioxide 30 mmol/L (22-30); Chloride 95 mmol/L (98-107); Estimated CRCL calculation 70 ml/min; Estimated Glomerular Filt Rate > 60; Glucose 86 mg/dL (65-110); Magnesium 2.2 mg/dL (1.6-2.3); Potassium 3.8 mmol/L (3.4-5.0); Sodium 134 mmol/L (137-145)
[2025-01-17] MEDS: ENOXAPARIN 40 MG/0.4 ML SYRINGE SUB-Q (09:26)
[2025-01-17] MEDS: ROSUVASTATIN 10 MG TABLET PO (09:27)
[2025-01-17] MEDS: METOPROLOL SUCCINATE EXT REL 100 MG TABCR PO (09:27)
[2025-01-17] MEDS: IRBESARTAN 150 MG TABLET PO (09:27)
[2025-01-17] MEDS: predniSONE 20 MG TABLET 40 MG PO (09:28)
[2025-01-17] MEDS: amLODIPine BESYLATE 10 MG TABLET PO (09:29)
[2025-01-17] MEDS: FUROSEMIDE INJ 40 MG/4 ML VIAL IV PUSH (09:29)
--- NOTE | 2025-01-17 10:21 | BUHOMEO2 ---
Evaluation was performed at [facility] Home Oxygen Evaluation RC: Home Oxygen (O2) Evaluation Start: 01/17/25 09:19 Freq: ONCE Status: Active Protocol: RPE Activity Type Activity Date Activity User E-sign Co-sign Detail Recorded Client Recorded Date Recorded By Document 01/17/25 10:12 CLC [email or web address] 01/17/25 10:20 CLC Document 01/17/25 10:16 CLC [email or web address] 01/17/25 10:20 CLC 01/17/25 01/17/25 10:12 10:16 Home O2 Evaluation [Oxygen] -Test Phase Resting Exercise -Oxygen Delivery Room Air Room Air [Pulse Oximetry] -Pulse Oximetry (90-100 %) 93 90 [Pulse Rate] -Pulse Rate (60-100 beats/min) 94 108 H [Evaluation] -Activity Tolerance Excellent [Exercise] -Ambulation Distance (feet) 500 -Ambulation Distance (meters) 152.39 [Charges] -Evaluation Charges O2 Evaluation by VELMA
--- NOTE | 2025-01-17 11:01 | PM.PNPUL ---
Progress Note: A&P Assessment and Plan (1) COPD exacerbation: Code(s): J44.1 - Chronic obstructive pulmonary disease with (acute) exacerbation Status: Acute Assessment and Plan: 01/15/25: This 70-year-old male patient, with a significant history of long-term smoking, obesity, and a recent diagnosis of obstructive sleep apnea managed with CPAP, presented with an acute illness characterized by cough, shortness of breath, and hypoxemia. A chest CT scan revealed no active infiltrates, but mild bronchiectasis was noted. On physical examination, mild expiratory wheezing was observed. The combination of the patient's history and diagnostic findings suggests a diagnosis of acute bronchitis, likely superimposed on underlying obstructive airway disease. The patient has no hypercapnia and is currently stable, requiring only supplemental oxygen. It is suspected that his chronic lower extremity edema is related to sleep-disordered breathing with chronic nocturnal hypoxemia, rather than congestive heart failure. The bronchiectasis is mild and does not require specific treatment at this time.. On today's exam he continues to have expiratory wheezing. Plan: Continue with current regimen of antibiotics, oral steroids, short-acting acting bronchodilators, DVT prophylaxis and supplemental oxygen as prescribed. Will continue to monitor the patient's respiratory status along with you. 01/16/25: overall the patient continues to improve. States he is 80% back to his normal. His cough is gone. His phlegm is 80% better. He has no hemoptysis. He is afebrile. White blood cell count 14.5, creatinine 1.05. Last night he slept with room air and did not uses home CPAP 9 machine. Currently is on room air with saturations 93%. Patient is on Lasix 40 IV b.i.d. and cumulative he is -1 L since admission. Plan: continue prednisone 40 mg p.o. q.day, day 3. Continue DuoNebs q.6 hours. Continue Levaquin day 4. Patient is on Lasix 40 IV b.i.d. for fluid overload, management per hospitalist. 01/17/2025: Patient tells me he is 90% back to his normal. His cough has resolved and his phlegm is 90% back to normal. He is afebrile. White blood cell count 13.7, creatinine 1.01. Weight is 107.4 kg with an admission weight of 111. cumulative he is +70 mL since admission. He has mild wheezing on exam. Patient tells me he is feeling well and ready to be discharged. Home O2 assessment: Rest room air saturation 93%. Exercise room air saturation 90%. patient is ready to be discharged from a pulmonary perspective on these pulmonary medications. Prednisone 40 mg p.o. q.day x1 day. Azithromycin 250 mg p.o. q.day x1 day. Recommend triple inhalers for the patient. Beta agonist, muscarinic antagonist and inhaled corticosteroids that insurance will cover (Trelegy 200/62.5/24 at 1 puffs Q day or Breztri 160/9/4.8 at 2 puffs BID). if these are not covered Beta agonsit and inhaled corticosteroid (Advair discus 250/50 at 1 puff BID, Advair HFA 115/21 at 2 puffs BID, Breo Ellipts 100/25 at 1 puff Q day, Dulera 100/5 at 2 puffs BID, or symbicort 160/4.5 at 2 puffs BID) PLUS Muscarinic antagonist that insurance will cover (incruse ellipta 62.5 at 1 puffs Q day, spireva 18 mics at 1 puff Q day or spireva respimat 2.5 mics at 2 puff Q day). I discussed with care coordination who will try to find out the least expensive inhalers for the patient. CPAP 9 with room air. Patient prefers to follow up with his PCP Dr. Yusuf. Recommend outpatient PFTs and outpatient home O2 study on CPAP 9 in room air. Discussed with Dr. Lee, will sign off, call with questions. (2) SUJEY (obstructive sleep apnea): Code(s): G47.33 - Obstructive sleep apnea (adult) (pediatric) Status: Acute Assessment and Plan: Patient has SUJEY and is on CPAP 9 at home. He uses room air at home. 01/16/25: Plan: Tonight patient will uses home CPAP unit on room air and I will obtain an overnight oximetry to assess oxygenation. 01/17/2025: Overnight oximetry on home CPAP 9 in room air not performed with patient tells me they did spot saturation checks which were 92-94%. Plan: Patient should continue to wear his CPAP 9 at night. Recommend outpatient CPAP 9 and room air overnight oximetry. Subjective Date/time seen: 01/17/25 11:01 Interval history: 01/16/25: overall the patient continues to improve. States he is 80% back to his normal. His cough is gone. His phlegm is 80% better. He has no hemoptysis. He is afebrile. White blood cell count 14.5, creatinine 1.05. Last night he slept with room air and did not uses home CPAP 9 machine. Currently is on room air with saturations 93%. Patient is on Lasix 40 IV b.i.d. and cumulative he is -1 L since admission. 01/17/2025: Patient tells me he is 90% back to his normal. His cough has resolved and his phlegm is 90% back to normal. He is afebrile. White blood cell count 13.7, creatinine 1.01. Weight is 107.4 kg with an admission weight of 111. cumulative he is +70 mL since admission. He has mild wheezing on exam. Patient tells me he is feeling well and ready to be discharged. Review of Systems Review of Systems: All systems reviewed & are unremarkable except as noted in HPI and below (HPI and below) Constitutional: Constitutional: Reports no additional constitutional complaints Eyes: Eyes: Reports no additional eye complaints ENT: Reports system reviewed and no additional complaints, except as documented Cardiovascular: Cardiovascular: Reports no additional cardiovascular complaints Respiratory: Respiratory: Reports no additional respiratory complaints Gastrointestinal: Gastrointestinal: Reports no additional gastrointestinal complaints Musculoskeletal: Musculoskeletal: Reports no additional musculoskeletal complaints Neurologic: Reports system reviewed and no additional complaints, except as documented Psychiatric: Psychiatric: Reports no additional psychiatric complaints Endocrine: Endocrine: Reports no additional endocrine complaints Hematologic/Lymphatic: Hematologic/Lymphatic: Reports no additional hematologic/lymphatic complaints Allergic/Immunologic: Allergic/Immunologic: Reports no additional allergic/immunologic complaints Exam Const: General: cooperative, healthy appearing and comfortable Orientation/consciousness: oriented to person, oriented to place and oriented to time HENMT: Head: normal to inspection Ears: hearing grossly normal bilaterally Eyes: General: appearance normal, both eyes and all related structures Neck: Neck: normal visual inspection Chest: Chest palpation & inspection: normal inspection of the chest Resp: Effort & Inspection: normal respiratory effort and able to speak in complete sentences Auscultation: no crackles, no rales, no rhonchi, wheezes and lung sounds not diminished Other: Mild end expiratory wheezes bilaterally, Improved from yesterday Cardio: Jugular venous distension: no JVD GI: Inspection: normal to inspection Skin: General skin exam: normal color Neuro: General: oriented to person, oriented to place and oriented to time Extrem: General: normal to inspection Other: improved edema per the patient Psych: Appearance: grossly normal Objective Data Vital Signs Vital Signs: Vital Signs - 24 hr 01/16/25 12:00 01/16/25 13:40 01/16/25 14:15 Temperature 36.6 C Pulse Rate 91 87 92 Respiratory Rate 19 18 Blood Pressure 117/65 Pulse Oximetry 93 Oxygen Delivery 01/16/25 15:07 01/16/25 20:03 01/16/25 20:34 Temperature Pulse Rate 96 88 Respiratory Rate 18 Blood Pressure Pulse Oximetry 93 Oxygen Delivery Room Air 01/16/25 20:34 01/16/25 20:39 01/16/25 20:58 Temperature Pulse Rate 82 85 Respiratory Rate 16 16 Blood Pressure Pulse Oximetry 93 Oxygen Delivery Room Air 01/16/25 21:11 01/17/25 00:03 01/17/25 02:17 Temperature 36.5 C Pulse Rate 82 71 80 Respiratory Rate 18 16 Blood Pressure 117/81 Pulse Oximetry 93 Oxygen Delivery 01/17/25 02:23 01/17/25 04:03 01/17/25 05:20 Temperature 36.2 C L Pulse Rate 88 76 85 Respiratory Rate 16 20 Blood Pressure 110/69 Pulse Oximetry 96 Oxygen Delivery 01/17/25 07:33 01/17/25 07:33 01/17/25 07:43 Temperature Pulse Rate 86 75 Respiratory Rate 16 16 Blood Pressure Pulse Oximetry 91 Oxygen Delivery Room Air 01/17/25 09:27 01/17/25 10:12 01/17/25 10:16 Temperature Pulse Rate 92 94 108 H Respiratory Rate Blood Pressure Pulse Oximetry 93 90 Oxygen Delivery Room Air Room Air Intake/Output Intake/Output: Intake & Output 01/14/25 01/15/25 01/16/25 01/17/25 23:59 23:59 23:59 23:59 Intake Total 2370 2570 2540 1180 Output Total 2450 2000 1150 1100 Balance -80 570 1390 80 Meds/Results Medications: Active Medications Generic Name Dose Route Start Last Admin Trade Name Freq PRN Reason Stop Dose Admin Acetaminophen 650 mg 01/14/25 21:14 01/16/25 21:10 Acetaminophen 325 Mg Tablet PO 650 mg Q4H PRN Administration Headache Albuterol/Ipratropium 3 ml 01/13/25 20:00 01/17/25 07:33 Ipratropium 0.5 Mg/Albuterol Sulfate 2.5 Mg Ampul.Neb 3 Ml INHALATION 3 ml Q6HRT ADRIANE Administration Amlodipine Besylate 10 mg 01/14/25 09:00 01/17/25 09:29 Amlodipine Besylate 10 Mg Tablet PO 10 mg DAILY ADRIANE Administration Enoxaparin Sodium 40 mg 01/14/25 09:00 01/17/25 09:26 Enoxaparin 40 Mg/0.4 Ml Syringe SUB-Q 40 mg DAILY ADRIANE Administration Furosemide 40 mg 01/13/25 17:00 01/17/25 09:29 Furosemide Inj 40 Mg/4 Ml Vial IV PUSH 40 mg BID ADRIANE Administration Guaifenesin/Dextromethorphan 5 ml 01/13/25 16:17 01/14/25 07:48 Guaifenesin/Dextromethorphan 10 Ml Udc PO 5 ml Q4H PRN Administration Cough Levofloxacin/Dextrose 750 mg in 150 mls @ 100 mls/hr 01/13/25 17:00 01/16/25 20:02 Levaquin 750 Mg/D5w 150 Ml IVPB Infused Q24H ADRIANE Infusion Irbesartan 150 mg 01/14/25 09:00 01/17/25 09:27 Irbesartan 150 Mg Tablet PO 150 mg DAILY ADRIANE Administration Metoprolol Succinate 100 mg 01/14/25 09:00 01/17/25 09:27 Metoprolol Succinate Ext Rel 100 Mg Tabcr PO 100 mg DAILY ADRIANE Administration Prednisone 40 mg 01/14/25 09:40 01/17/25 09:28 Prednisone 20 Mg Tablet PO 40 mg DAILY@0800 [facility] Administration Rosuvastatin Calcium 10 mg 01/14/25 09:00 01/17/25 09:27 Rosuvastatin 10 Mg Tablet PO 10 mg DAILY [facility] Administration Radiology Results: ITS Impressions Venous Doppler Study 01/13/25 08:36 IMPRESSION: 1. No deep venous thrombosis. Chest X-Ray 01/13/25 08:40 IMPRESSION: 1. No acute cardiopulmonary disease. Chest CT 01/13/25 10:58 IMPRESSION: Cylindrical bronchiectasis. No focal infiltrate. Labs Labs: Laboratory Results - last 24 hr 01/17/25 05:47 WBC 13.7 H RBC 4.06 L Hgb 12.8 L Hct 39.5 L MCV 97.3 MCH 31.5 MCHC 32.4 RDW 13.3 Plt Count 255 MPV 8.5 Sodium 134 L Potassium 3.8 Chloride 95 L Carbon Dioxide 30 Anion Gap 9 BUN 21 H Creatinine 1.01 Estim Creat Clear Calc 70 Estimated GFR > 60 Glucose 86 Calcium 8.9 Magnesium 2.2
--- NOTE | 2025-01-17 13:23 | P.DS_ITS ---
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 and has been breathing some nasty stuff, several of coworker also sick with cough and short breath, CT scan of chest showed Cylindrical bronchiectasis, will start patient on Levaquin and duo neb, patient was seen by transportation operations manager suspect patient has a mild bronchiectasis, agree to continued antibiotics, patient has lower extremities swelling c/o nocturnal orthopnea and dyspnea suspect patient may have pulmonary edema, patient is treated with Lasix, cardiac echo is essentially normal, transportation operations manager suspect lower extremity edema secondary to untreated obstructive sleep apnea patient is using hospital BIPAP, will monitor and have PT/OT evaluate the patient. patient still c/o cough and shortness of breath, seen by transportation operations manager and recommended to CPM over the weekend, on 01/15 patient's sister was present in the room gave updates. today patient is off oxygen stats feeling better, seen by Dr. Ace and discussed, will monitor overnight without oxygen will do apenea link on patient CPAP and w ill plan, possibly discharge patient tomorrow. 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 and has been breathing some nasty stuff, several of coworker also sick with cough and short breath, CT scan of chest showed Cylindrical bronchiectasis, will start patient on Levaquin and duo neb, patient was seen by transportation operations manager suspect patient has a mild bronchiectasis, agree to continued antibiotics, p atient has lower extremities swelling c/o nocturnal orthopnea and dyspnea suspect patient may have pulmonary edema, patient is treated with Lasix, cardiac echo is essentially normal, transportation operations manager suspect lower extremity edema secondary to untreated obstructive sleep apnea patient is using hospital BIPAP, will monitor and have PT/OT evaluate the patient. patient still c/o cough and shortness of breath, seen by transportation operations manager and recommended to CPM over the weekend, on 01/15 patient's sister was present in the room gave updates. today patient is off oxygen stats feeling better, seen by Dr. Ace and discussed, will monitor overnight without oxygen will do apenea link on patient CPAP and will plan, today patient is clinically stable discharge patient today. Time Spent with Patient Time attestation: Total time spent providing and/or coordinating discharge services: Exam Narrative: Morbidly obese Patient is comfortable, NAD HEENT: eyes are clear and none icteric LUNGS: Bilateral fair entry with rales and rhonchi HEART: RR S1S2 ABD: Obese, BS+, Soft and nontender Lower extremities: edema SKIN: nonjaundiced Neuro: grossly intact. DS: Data Data Completed and Pending Labs on day of discharge: Labs from last 24 hours 01/17/25 05:47 WBC 13.7 H RBC 4.06 L Hgb 12.8 L Hct 39.5 L MCV 97.3 MCH 31.5 MCHC 32.4 RDW 13.3 Plt Count 255 MPV 8.5 Sodium 134 L Potassium 3.8 Chloride 95 L Carbon Dioxide 30 Anion Gap 9 BUN 21 H Creatinine 1.01 Estim Creat Clear Calc 70 Estimated GFR > 60 Glucose 86 Calcium 8.9 Magnesium 2.2 Preliminary micro results at discharge 01/13/25 08:02 Blood Culture - Preliminary Blood 01/13/25 08:02 Blood Culture - Preliminary Blood Discharge Plan Discharge Attending physician on discharge: Sai Lee Consulting providers: Himanshu Cee; Eden Wall Ripa K.; Satya Ace; Seamus Tate V.; Evi Garcia Discharging Clinician: Sai Lee Patient Disposition: Home, Self-Care Activity: as tolerated Diet: heart healthy Discharge Instructions: patient to follow discharge instruction from his transportation operations manager and follow as scheduled, patient to follow up with his primary care provider as soon as possible, patient is instructed if any symptoms worsen to go nearest ER. Patient Instructions: Antibiotic Form, Pulmonary Edema (GEN), Acute Bronchitis (GEN) Patient Language: Kinyarwanda Stand Alone Forms: General Discharge Information Follow-up/Referrals: Vern Yusuf MD [Primary Care Provider] - Himanshu Cee MD [Physician] - Discharge Medications: New dextromethorphan-guaifenesin 10-100 mg/5 mL Syrup 5 ml PO Q4H PRN (Reason: Cough) Qty: 237 0RF prednisone 10 mg tablet 10 mg PO DAILY Qty: 20 0RF Rx Instructions: 4Tx2d, 3Tx2d, 2Tx2d 1Tx2d levofloxacin 750 mg tablet 750 mg PO DAILY Qty: 1 0RF fluticasone propion-salmeterol [Wixela Inhub] 250-50 mcg/dose blister with device 1 inh inhalation Q12H Qty: 60 0RF Continued amlodipine 10 mg tablet 10 mg PO DAILY rosuvastatin 10 mg tablet 10 mg PO DAILY metoprolol succinate 100 mg tablet extended release 24 hr 100 mg PO DAILY irbesartan 150 mg tablet 150 mg PO DAILY Date of admission: 01/14/25 13:22 Primary Care Provider: Vern Yusuf Admitting Provider: Sai Lee Attending physician on admission: Sai Lee Condition: Stable
== END 2025-01-17 14:40 | disposition home or self-care (01) | DRG 189 ==
LOC: ANHED 11:27 → ANH3MEDSUR 12:11
PROVIDERS: Admitting Provider Family Medicine; Emergency Provider Emergency Medicine; PCP Emergency Medicine; Visit Provider Family Medicine
DX: J96.91 Respiratory failure, unspecified with hypoxia (principal); J81.0 Acute pulmonary edema; J44.1 Chronic obstructive pulmonary disease with (acute) exacerbation; J47.0 Bronchiectasis with acute lower respiratory infection; J20.9 Acute bronchitis, unspecified; E78.5 Hyperlipidemia, unspecified; F17.210 Nicotine dependence, cigarettes, uncomplicated; G47.33 Obstructive sleep apnea (adult) (pediatric); I10 Essential (primary) hypertension; Z99.89 Dependence on other enabling machines and devices; E66.01 Morbid (severe) obesity due to excess calories; Z20.822 Contact with and (suspected) exposure to COVID-19
CPT/HCPCS: 36415; 71045; 71250; 80048; 80053; 82803; 83735; 83880; 84484; 85025; 85027; 85380; 87040; 87637; 93005; 93970; 94002; 94618; 94640; 96374; 99291; A9270; C8929; G0378; J1650; J1940; J1956; J7512; Q9957